=== PATIENT | male | born 1945 | race Caucasian/White ===

== ENCOUNTER 2018-03-14 08:54 | Emergency (ER) | payer MEDICARE, BC ==
[2018-03-14] MEDS ORDERED: Adenosine 6 MG/2 ML SDV ONE ×2 (09:05→10:04)
[2018-03-14] MEDS ORDERED: Diltiazem 50 MG/10 ML SDV ONE (09:05)
[2018-03-14] MEDS ORDERED: Sodium Chloride 0.9% 250 ML IV ONE ×2 (09:13→11:13)
[2018-03-14] MEDS ORDERED: Adenosine 6 MG/2 ML SDV IVPUSH ONE ×3 (09:25→10:15)
--- NOTE | 2018-03-14 10:04 | EDM.PDOC ---
ED HPI GENERAL MEDICAL PROBLEM - General Chief Complaint: Fever Stated Complaint: FEVER Time Seen by Provider: 03/14/18 09:00 - History of Present Illness INITIAL COMMENTS - FREE TEXT/NARRATIVE: 72-year-old male presents emergency room shortness of breath. Patient has been feeling generally ill for the last 5 or 6 days his appetite is been diminished he has not been eating or drinking much. He's had a mild cough with this. This morning when he woke up he had marked shortness of breath. He has a significant past history of a large myocardial infarction in the past she' s has 1 stent and is taking Plavix. He had a fever as high as 103 this morning, however he is afebrile upon presentation to the emergency room. He was brought back to the emergency room placed on a monitor and found to be in a tachydysrhythmia. - Related Data Allergies Allergy/AdvReac Type Severity Reaction Status Date / Time No Known Allergies Allergy Verified 03/14/18 09:10 Home Meds: Home Meds Atenolol [Tenormin] 25 mg PO BID 09/07/13 [History] Levothyroxine [Levothroid] 137 mcg PO DAILY 09/07/13 [History] Losartan [Cozaar] 25 mg PO DAILY 09/07/13 [History] Aspirin [Halfprin] 81 mg PO DAILY 09/23/13 [History] Clopidogrel [Plavix] 75 mg PO DAILY 09/23/13 [History] Nitroglycerin [Nitrostat] 0.4 mg SL ASDIRECTED PRN 09/23/13 [History] Ezetimibe 10 mg PO DAILY 03/14/18 [History] Multivitamin [Gummi Bear Multivitamin] 1 tab PO DAILY 03/14/18 [History] Rosuvastatin Calcium [Crestor] 20 mg PO BEDTIME 03/14/18 [History] Ubidecarenone [Co Q-10] 100 mg PO DAILY 03/14/18 [History] ED ROS GENERAL - Review of Systems Review Of Systems: See Below Constitutional: Reports: Fever, Chills, Weakness, Fatigue HEENT: Denies: No Symptoms Respiratory: Reports: Shortness of Breath, Cough. Denies: Sputum, Hemoptysis Cardiovascular: Denies: Chest Pain, Blood Pressure Problem, Palpitations Endocrine: Reports: No Symptoms GI/Abdominal: Reports: No Symptoms : Reports: No Symptoms Musculoskeletal: Reports: No Symptoms Skin: Reports: No Symptoms Neurological: Reports: No Symptoms Psychiatric: Reports: No Symptoms ED EXAM, GENERAL - Physical Exam Exam: See Below Exam Limited By: No Limitations General Appearance: Alert, No Apparent Distress, Other (Systolic blood pressures around 100 pulse 150-160 with some variability his oxygen suggest a little low he'll be started on supplemental oxygen) Head: Atraumatic, Normocephalic Neck: Normal Inspection, Supple, Non-Tender, Full Range of Motion. No: Lymphadenopathy (L), Lymphadenopathy (R) Respiratory/Chest: Lungs Clear, No Accessory Muscle Use, Decreased Breath Sounds (Mostly in the basis) Cardiovascular: No Edema, No Murmur, Tachycardia GI/Abdominal: Normal Bowel Sounds, Soft, Non-Tender Extremities: Normal Inspection, No Pedal Edema Neurological: Alert, Oriented, Normal Cognition Psychiatric: Normal Affect Course - Vital Signs Text/Narrative:: Initial EKG showed a SVT 152. A little unusual could also be a sinus tach related to his fever however he is afebrile at the time of presentation to the emergency room he looks a little dry on exam attempted to 150 mL and S bolus and this did nothing for his pulse. He was given 6 mg of adenosine and he converted to a sinus rhythm rate about 82 he stayed there for about 30 minutes and then developed a a tachydysrhythmia again. Attempted 6 mg of adenosine the did nothing. About ready to give him 12 and he converted to sinus on his own. I attempted to give him 5 mg IV Lopressor at that point in an attempt to keep his pulse down. Also at that time his labs were available for review which are concerning for an elevated white count with a marked bandemia chest x-ray shows a left lower lobe infiltrate. At this point is thought best to go ahead and attempt to treat his pneumonia and give him gentle fluid boluses with the fluid is tachycardia dysrhythmias did slow into the 120s but often times he would bounce back into a normal sinus. Case was discussed with our hospitalist who did not feel comfortable admitting here and it was recommended the patient be sent to [place] I was able to discuss situation with Dr. Russo to accept the hospitalist at [facility] in [place] who is kind enough to accept the patient in transfer however wanted him to go through the emergency room because of his concerning blood pressure. At that time it was not recommended to attempt any further management for the blood pressure other than continuing fluids. I did briefly discuss situation with Dr. Bedoya in the emergency room who had already talked to Dr. Russo. Last Recorded V/S: Last Vital Signs Temp 37.1 C 03/14/18 11:48 Pulse 72 03/14/18 11:48 Resp 24 H 03/14/18 11:48 BP 99/56 L 03/14/18 11:48 Pulse Ox 93 L 03/14/18 11:48 - Orders/Labs/Meds Orders: Active Orders 24 hr Category Date Time Status EKG Documentation Completion [RC] STAT Care 03/14/18 09:14 Active CULTURE BLOOD [BC] Stat Lab 03/14/18 09:54 Received CULTURE BLOOD [BC] Stat Lab 03/14/18 10:48 Received Labs: Laboratory Tests 03/14/18 03/14/18 03/14/18 Range/Units 09:10 09:10 09:10 WBC 18.03 H (4.23-9.07) K/mm3 RBC 4.75 (4.63-6.08) M/mm3 Hgb 15.1 (13.7-17.5) gm/L Hct 43.6 (40.1-51.0) % MCV 91.8 (79.0-92.2) fl MCH 31.8 (25.7-32.2) pg MCHC 34.6 (32.2-35.5) g/dl RDW Std Deviation 47.9 H (35.1-43.9) fL Plt Count 205 (163-337) K/mm3 MPV 10.4 (9.4-12.3) fl Neutrophils % (Manual) 46 (40-60) % Band Neutrophils % 28 H (0-10) % Lymphocytes % (Manual) 14 L (20-40) % Atypical Lymphs % 0 % Monocytes % (Manual) 11 H (2-10) % Eosinophils % (Manual) 0 L (0.8-7.0) % Basophils % (Manual) 0 L (0.2-1.2) Metamyelocytes % 1 Toxic Granulation 2+ moderate Platelet Estimate Adequate RBC Morph Comment Normal PT 12.0 (9.5-12.1) SECONDS INR 1.10 APTT 30 (24-31) SECONDS Sodium 134 L (136-145) mEq/L Potassium 3.8 (3.5-5.1) mEq/L Chloride 96 L (98-107) mEq/L Carbon Dioxide 22 (21-32) mEq/L Anion Gap 19.8 H (5-15) BUN 13 (7-18) mg/dL Creatinine 1.2 (0.7-1.3) mg/dL Est Cr Clr Drug Dosing 64.73 mL/min Estimated GFR (MDRD) 60 (>60) mL/min BUN/Creatinine Ratio 10.8 L (14-18) Glucose 139 H (80-115) mg/dL Lactic Acid (0.4-2.0) mmol/L Calcium 9.2 (8.5-10.1) mg/dL Magnesium 1.7 L (1.8-2.4) mg/dl Total Bilirubin 1.3 H (0.2-1.0) mg/dL AST 41 H (15-37) U/L ALT 48 (16-63) U/L Alkaline Phosphatase 67 (46-116) U/L Troponin I < 0.017 (0.00-0.056) ng/mL NT-Pro-B Natriuret Pep (0-125) pg/mL Total Protein 7.6 (6.4-8.2) g/dl Albumin 3.0 L (3.4-5.0) g/dl Globulin 4.6 gm/dL Albumin/Globulin Ratio 0.7 L (1-2) TSH 3rd Generation 2.183 (0.358-3.74) uIU/mL Mycoplasma pneumon IgM (NEGATIVE) 03/14/18 03/14/18 03/14/18 Range/Units 09:10 09:10 09:54 WBC (4.23-9.07) K/mm3 RBC (4.63-6.08) M/mm3 Hgb (13.7-17.5) gm/L Hct (40.1-51.0) % MCV (79.0-92.2) fl MCH (25.7-32.2) pg MCHC (32.2-35.5) g/dl RDW Std Deviation (35.1-43.9) fL Plt Count (163-337) K/mm3 MPV (9.4-12.3) fl Neutrophils % (Manual) (40-60) % Band Neutrophils % (0-10) % Lymphocytes % (Manual) (20-40) % Atypical Lymphs % % Monocytes % (Manual) (2-10) % Eosinophils % (Manual) (0.8-7.0) % Basophils % (Manual) (0.2-1.2) Metamyelocytes % Toxic Granulation Platelet Estimate RBC Morph Comment PT (9.5-12.1) SECONDS INR APTT (24-31) SECONDS Sodium (136-145) mEq/L Potassium (3.5-5.1) mEq/L Chloride (98-107) mEq/L Carbon Dioxide (21-32) mEq/L Anion Gap (5-15) BUN (7-18) mg/dL Creatinine (0.7-1.3) mg/dL Est Cr Clr Drug Dosing mL/min Estimated GFR (MDRD) (>60) mL/min BUN/Creatinine Ratio (14-18) Glucose (80-115) mg/dL Lactic Acid 1.5 (0.4-2.0) mmol/L Calcium (8.5-10.1) mg/dL Magnesium (1.8-2.4) mg/dl Total Bilirubin (0.2-1.0) mg/dL AST (15-37) U/L ALT (16-63) U/L Alkaline Phosphatase (46-116) U/L Troponin I (0.00-0.056) ng/mL NT-Pro-B Natriuret Pep 1278 H (0-125) pg/mL Total Protein (6.4-8.2) g/dl Albumin (3.4-5.0) g/dl Globulin gm/dL Albumin/Globulin Ratio (1-2) TSH 3rd Generation (0.358-3.74) uIU/mL Mycoplasma pneumon IgM Negative (NEGATIVE) Meds: Medications Discontinued Medications Generic Name Dose Route Start Last Admin Trade Name Blake PRN Reason Stop Dose Admin Adenosine Confirm 03/14/18 09:05 03/14/18 10:35 Adenocard Administered 03/14/18 09:06 Not Given Dose 6 mg .ROUTE .STK-MED ONE Adenosine Confirm 03/14/18 10:04 03/14/18 10:35 Adenocard Administered 03/14/18 10:05 Not Given Dose 6 mg .ROUTE .STK-MED ONE Adenosine Confirm 03/14/18 10:11 03/14/18 10:36 Adenocard Administered 03/14/18 10:12 Not Given Dose 12 mg .ROUTE .STK-MED ONE Adenosine 6 mg 03/14/18 09:25 03/14/18 09:28 Adenocard IVPUSH 03/14/18 09:26 6 mg NOW ONE Administration Adenosine 6 mg 03/14/18 10:05 03/14/18 10:07 Adenocard IVPUSH 03/14/18 10:06 6 mg NOW ONE Administration Adenosine 12 mg 03/14/18 10:15 03/14/18 10:42 Adenocard IVPUSH 03/14/18 10:16 Not Given NOW ONE Adenosine 12 mg 03/14/18 10:45 03/14/18 10:16 Adenocard IVPUSH 03/14/18 10:46 12 mg NOW ONE Administration Ceftriaxone Sodium Confirm 03/14/18 10:50 03/14/18 10:52 Rocephin Administered 03/14/18 10:51 Not Given Dose 1 gm IV .STK-MED ONE Diltiazem HCl Confirm 03/14/18 09:05 03/14/18 11:44 Cardizem Administered 03/14/18 09:06 Not Given Dose 50 mg .ROUTE .STK-MED ONE Sodium Chloride 250 mls @ 999 mls/hr 03/14/18 09:13 03/14/18 09:15 Normal Saline IV 03/14/18 09:28 999 mls/hr .BOLUS ONE Administration Ceftriaxone Sodium 1 gm/ 100 mls @ 200 mls/hr 03/14/18 10:35 03/14/18 10:57 Sodium Chloride IV 03/14/18 11:04 Not Given ONETIME ONE Ceftriaxone Sodium 1 gm/ 100 mls @ 200 mls/hr 03/14/18 10:52 03/14/18 10:55 Sodium Chloride IV 03/14/18 11:21 200 mls/hr ONETIME ONE Administration Sodium Chloride Confirm 03/14/18 10:50 03/14/18 10:57 Normal Saline Administered 03/14/18 10:51 Not Given Dose 100 mls @ as directed .ROUTE .STK-MED ONE Sodium Chloride 250 mls @ 999 mls/hr 03/14/18 11:13 03/14/18 11:15 Normal Saline IV 03/14/18 11:28 999 mls/hr ONETIME ONE Administration Metoprolol Tartrate Confirm 03/14/18 10:21 03/14/18 10:36 Lopressor Administered 03/14/18 10:22 Not Given Dose 15 mg .ROUTE .STK-MED ONE Metoprolol Tartrate 5 mg 03/14/18 10:25 03/14/18 10:27 Lopressor IVPUSH 03/14/18 10:26 5 mg ONETIME ONE Administration Departure - Departure Time of Disposition: 12:17 Disposition: DC/Tfer to [facility] 02 Reason for Transfer *Q: Other Clinical Impression: Pneumonia, Tachyarrhythmia Referrals: Ab Lomax MD [Primary Care Provider] - Forms: ED Department Discharge - My Orders Last 24 Hours: My Active Orders 03/14/18 09:14 EKG Documentation Completion [RC] STAT 03/14/18 09:54 CULTURE BLOOD [BC] Stat 03/14/18 10:48 CULTURE BLOOD [BC] Stat - Assessment/Plan Last 24 Hours: My Active Orders 03/14/18 09:14 EKG Documentation Completion [RC] STAT 03/14/18 09:54 CULTURE BLOOD [BC] Stat 03/14/18 10:48 CULTURE BLOOD [BC] Stat
[2018-03-14] MEDS ORDERED: Adenosine 12 MG/4 ML SDV ONE (10:11)
--- NOTE | 2018-03-14 10:19 | CR ---
Chest: Portable view of the chest was obtained. Comparison: Prior chest x-ray of 09/07/13. Heart size and mediastinum are within normal limits for portable technique. Incidental azygos lobe is seen. Slight increased perihilar markings are noted within the left upper and left lower lung. Right lung is clear. Impression: 1. Slight increased perihilar markings within the left chest. Findings may represent mild bronchitis if patient has infectious symptoms. 2. Other incidental findings. Diagnostic code #3
[2018-03-14] MEDS ORDERED: Metoprolol Tartrate 5 MG/5 ML SDV ONE (10:21)
[2018-03-14] MEDS ORDERED: Metoprolol Tartrate 5 MG/5 ML SDV IVPUSH ONE (10:25)
[2018-03-14] MEDS ORDERED: cefTRIAXone 1 GM in Sodium Chloride 0.9% 100 ML IV ONE ×2 (10:35→10:52)
[2018-03-14] MEDS ORDERED: Adenosine 12 MG/4 ML SDV IVPUSH ONE (10:45)
[2018-03-14] MEDS ORDERED: Sodium Chloride 0.9% 100 ML ONE (10:50)
[2018-03-14] MEDS ORDERED: cefTRIAXone 1 GM AdvVial IV ONE (10:50)
[2018-03-14 12:13] VITALS: BP 87/66
[2018-03-14] MEDS ORDERED: Doxycycline 100 MG Cap PO ONE (12:19)
== END 2018-03-14 12:25 ==
LOC: JD.ED 08:54
DX: J18.9 Pneumonia, unspecified organism (principal); R00.0 Tachycardia, unspecified; I25.2 Old myocardial infarction; Z79.82 Long term (current) use of aspirin; Z79.899 Other long term (current) drug therapy; Z95.5 Presence of coronary angioplasty implant and graft
CPT/HCPCS: 36415; 71045; 80053; 81001; 83605; 83735; 83880; 84443; 84484; 85007; 85027; 85610; 85730; 86738; 87040; 87804; 93005; 96361; 96365; 96375; 96376; 99291; A9270; J0153; J0696; J3490; J7030; J7040

== ENCOUNTER 2018-06-30 19:44 | Emergency (ER) | payer MEDICARE, BC ==
[2018-06-30 20:01] VITALS: BP 145/75
--- NOTE | 2018-06-30 22:02 | EDM.PDOC ---
ED HPI GENERAL MEDICAL PROBLEM - General Chief Complaint: Cardiovascular Problem Stated Complaint: BLOOD PRESSURE HIGH Time Seen by Provider: 06/30/18 20:14 Source of Information: Reports: Patient, Family (), RN Notes Reviewed History Limitations: Reports: No Limitations - History of Present Illness INITIAL COMMENTS - FREE TEXT/NARRATIVE: The patient states that he has chronic right knee pain, for which he sometimes takes ibuprofen, but he has been told by his Supervisor [employer] that he should take it sparingly. He was therefore recently prescribed tramadol. He states that he took his first dose of it, ever, around 10:00 to 11:00 this morning. He states that he then developed nausea and general malaise around noon, a sensation that persisted throughout the afternoon. He checked his blood pressure this evening, finding it to be elevated to 180/100, which is what prompted him to come to the ED, however, he acknowledges that he has not taken any of his evening medications tonight, including his blood pressure medicines. Further, he states that here in the ED, he no longer has nausea. The patient is concerned, because he suffered a SC in September 2013, and at that time he had nausea and felt tired, but did not have chest pain, dyspnea, or diaphoresis. The patient states that he suffered a syncopal episode and was found to be cyanotic. His started CPR, which was continued by EMS. He was brought to this ED, then transferred to [facility], where he received a single coronary stent (likely to the circumflex, but possibly to the RCA). The patient is concerned that the nausea that he felt earlier this afternoon could be cardiac related. The patient states that his last cardiac stress test was 20 years ago, and that he has not undergone a cardiac stress test since his SC. The patient notes that he is physically active, and is not limited by chest discomfort, dyspnea, nausea, or diaphoresis. The patient also notes that he has developed nausea and emesis when he has taken an opioid in the past. Here in the ED, the patient's initial BP was found to be 145/75. His oxygen saturation is 100% on room air. The patient's PCP is Dr. Ab Lomax. The patient's Supervisor [employer] H[employer] is Dr. Ramu Roberts. - Related Data Allergies Allergy/AdvReac Type Severity Reaction Status Date / Time No Known Allergies Allergy Verified 06/30/18 19:56 Home Meds: Home Meds Atenolol [Tenormin] 25 mg PO BID 09/07/13 [History] Levothyroxine [Levothroid] 137 mcg PO DAILY 09/07/13 [History] Losartan [Cozaar] 25 mg PO DAILY 09/07/13 [History] Aspirin [Halfprin] 81 mg PO DAILY 09/23/13 [History] Clopidogrel [Plavix] 75 mg PO DAILY 09/23/13 [History] Nitroglycerin [Nitrostat] 0.4 mg SL ASDIRECTED PRN 09/23/13 [History] Ezetimibe 10 mg PO DAILY 03/14/18 [History] Multivitamin [Gummi Bear Multivitamin] 1 tab PO DAILY 03/14/18 [History] Rosuvastatin Calcium [Crestor] 20 mg PO BEDTIME 03/14/18 [History] Ubidecarenone [Co Q-10] 100 mg PO DAILY 03/14/18 [History] Past Medical History Cardiovascular History: Reports: CAD, High Cholesterol, Hypertension, SC ( inferior wall, 09/08/2013) Respiratory History: Reports: Sleep Apnea (nightly CPAP) Endocrine/Metabolic History: Reports: Hypothyroidism, Obesity/BMI 30+ - Infectious Disease History Infectious Disease History: Reports: Chicken Pox, Measles, Mumps - Past Surgical History HEENT Surgical History: Reports: Cataract Surgery (left only), Eye Surgery (left , repair of laceration) Cardiovascular Surgical History: Reports: Coronary Artery Stent (x 1) Neurological Surgical History: Reports: Lumbar Spine (laminectomy around 1975) Musculoskeletal Surgical History: Reports: Carpal Tunnel (bilateal, 2013), Shoulder Surgery (arthroscopic, left 2002, right 2012) Social & Family History - Tobacco Use Smoking Status *Q: Former Smoker (dabbled as teenager) - Caffeine Use Caffeine Use: Reports: Coffee - Alcohol Use Alcohol Use History: Yes Alcohol Use Frequency: Socially - Recreational Drug Use Recreational Drug Use: No - Living Situation & Occupation Living situation: Reports: , with Spouse Occupation: Retired ED ROS GENERAL - Review of Systems Review Of Systems: ROS reveals no pertinent complaints other than HPI. ED EXAM, GENERAL - Physical Exam Exam: See Below Exam Limited By: No Limitations General Appearance: Alert, WD/WN, No Apparent Distress Eye Exam: Bilateral Eye: EOMI, Normal Inspection Ears: Normal External Exam, Hearing Grossly Normal Nose: Normal Inspection Throat/Mouth: Normal Inspection, Normal Lips, Normal Voice, No Airway Compromise Head: Atraumatic, Normocephalic Neck: Normal Inspection, Full Range of Motion Respiratory/Chest: No Respiratory Distress, Lungs Clear, Normal Breath Sounds, No Accessory Muscle Use Cardiovascular: Normal Peripheral Pulses, Regular Rate, Rhythm, No Gallop, No JVD, No Murmur, No Rub Peripheral Pulses: 4+: Radial (L), Radial (R) GI/Abdominal: Normal Bowel Sounds, Soft, Non-Tender, No Organomegaly, No Distention, No Abnormal Bruit, No Mass, Other (Obese) (Male) Exam: Deferred Rectal (Males) Exam: Deferred Back Exam: Normal Inspection, Full Range of Motion, NT Extremities: Normal Inspection, Normal Range of Motion, No Pedal Edema, Normal Capillary Refill Neurological: Alert, Oriented, Normal Cognition, No Motor/Sensory Deficits Psychiatric: Normal Affect Skin Exam: Warm, Dry, Intact, Normal Color, No Rash EKG INTERPRETATION EKG Date: 06/30/18 Time: 19:55 Rhythm: NSR Rate (Beats/Min): 64 [employer]: LAD-Left [employer] Deviation (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) P-Wave: Present (1 AVB) QRS: Normal (Late transition) ST-T: Normal QT: Normal Comparison: Change From Previous EKG (ECG 09/07/2013 had changes consistent with an inferior wall SC) Course - Vital Signs Last Recorded V/S: Last Vital Signs Temp 36.9 C 06/30/18 19:56 Pulse 70 06/30/18 19:56 Resp 18 06/30/18 19:56 BP 145/75 H 06/30/18 19:56 Pulse Ox 100 06/30/18 19:56 - Orders/Labs/Meds Labs: Laboratory Tests 06/30/18 06/30/18 06/30/18 Range/Units 20:00 20:00 20:00 WBC 12.32 H (4.23-9.07) K/mm3 RBC 4.83 (4.63-6.08) M/mm3 Hgb 15.2 (13.7-17.5) gm/L Hct 45.9 (40.1-51.0) % MCV 95.0 H (79.0-92.2) fl MCH 31.5 (25.7-32.2) pg MCHC 33.1 (32.2-35.5) g/dl RDW Std Deviation 47.8 H (35.1-43.9) fL Plt Count 229 (163-337) K/mm3 MPV 10.1 (9.4-12.3) fl Neut % (Auto) 54.6 (34.0-67.9) % Lymph % (Auto) 30.9 (21.8-53.1) % Stevens % (Auto) 11.1 (5.3-12.2) % Eos % (Auto) 2.8 (0.8-7.0) Baso % (Auto) 0.4 (0.1-1.2) % Neut # (Auto) 6.72 H (1.78-5.38) K/mm3 Lymph # (Auto) 3.81 H (1.32-3.57) K/mm3 Stevens # (Auto) 1.37 H (0.30-0.82) K/mm3 Eos # (Auto) 0.34 (0.04-0.54) K/mm3 Baso # (Auto) 0.05 (0.01-0.08) K/mm3 Sodium 140 (136-145) mEq/L Potassium 4.4 (3.5-5.1) mEq/L Chloride 103 (98-107) mEq/L Carbon Dioxide 27 (21-32) mEq/L Anion Gap 14.4 (5-15) BUN 20 H (7-18) mg/dL Creatinine 0.9 (0.7-1.3) mg/dL Est Cr Clr Drug Dosing TNP Estimated GFR (MDRD) > 60 (>60) mL/min BUN/Creatinine Ratio 22.2 H (14-18) Glucose 111 (80-115) mg/dL Calcium 9.6 (8.5-10.1) mg/dL Total Bilirubin 0.3 (0.2-1.0) mg/dL AST 24 (15-37) U/L ALT 47 (16-63) U/L Alkaline Phosphatase 58 (46-116) U/L Troponin I < 0.017 (0.00-0.056) ng/mL NT-Pro-B Natriuret Pep 212 H (0-125) pg/mL Total Protein 7.5 (6.4-8.2) g/dl Albumin 4.1 (3.4-5.0) g/dl Globulin 3.4 gm/dL Albumin/Globulin Ratio 1.2 (1-2) - Re-Assessments/Exams Free Text/Narrative Re-Assessment/Exam: 06/30/18 22:14 Test results discussed with the patient and his . The patient's troponin, drawn at 20:00, approximately 8 hours after his nausea began, is undetectably low. His ECG has no ischemic changes, while his ECG from 09/07/2018, when he suffered a inferior wall SC, did have changes consistent with an infarct. I suspect that the nausea that the patient experienced today is related to his taking tramadol, especially in light of his having significant nausea and vomiting with prior opioid use. Going forward, I am recommending that the patient follow-up with his Supervisor [employer] to discuss whether or not he might be a good candidate for an outpatient cardiac stress test. He can also inquire whether or not he should be on medication to specifically treat PVCs (he states that that is why he is on atenolol, not for BP), and he can also inquire about whether or not the benefits of Plavix still outweighs its risks. Departure - Departure Time of Disposition: 22:16 Disposition: Home, Self-Care 01 Condition: Good Clinical Impression: Nausea Instructions: Nausea, Adult Referrals: Ab Lomax MD [Primary Care Provider] - Ramu Roberts MD [Ordering Only Provider] - Forms: ED Department Discharge Additional Instructions: You were seen in the emergency room for nausea, symptoms similar to when you suffered a SC in 2013. Workup in the ER included blood work and an ECG, all of which were unremarkable. You have not suffered a heart attack. The cause of your nausea is most likely due to the tramadol that you took earlier. We recommend that you follow-up with your Supervisor [employer], Dr. Ramu Roberts to discuss : Whether you should have an outpatient cardiac stress test Whether you should be on medicine specifically to treat PVCs (if you are) Whether you should still be on Plavix If any other problems, please do not hesitate to return to the ER.
== END 2018-06-30 22:32 | disposition home or self-care (01) ==
LOC: SUPCPDRO 19:44 → JD.ED 19:44
DX: R11.0 Nausea (principal); E78.00 Pure hypercholesterolemia, unspecified; I25.10 Atherosclerotic heart disease of native coronary artery without angina pectoris; I10 Essential (primary) hypertension; I25.2 Old myocardial infarction; Z79.01 Long term (current) use of anticoagulants; Z79.899 Other long term (current) drug therapy; Z87.891 Personal history of nicotine dependence
CPT/HCPCS: 36415; 80053; 83880; 84484; 85025; 93005; 99283-25

== ENCOUNTER 2019-01-11 08:20 | Observation (INO) | payer MEDICARE, BC ==
[~2019-01-11 08:20] MED LIST: Acetaminophen 325 MG Tab PO SCH; Bisacodyl 5 MG Tab PO PRN; Bupivacaine 0.25% 10 ML SDV ONE; Cyclobenzaprine 10 MG Tab PO PRN; Lactated Ringers 1,000 ML IV SCH; Lidocaine 1%/Sod Bicarbonate in NS 8.4% 1 ML Syringe IDERM PRN; Magnesium Hydroxide 400 MG/5 ML Susp 30 ML Cup PO PRN; Morphine 2 MG/ML Syringe IVPUSH PRN; Naloxone 0.4 MG/ML SDV IVPUSH PRN; Ondansetron 4 MG/2 ML SDV IVPUSH PRN; Pregabalin 25 MG Cap PO SCH; Sennosides 8.6 MG Tab PO PRN; Sodium Chloride 0.9% 10 ML Syringe FLUSH PRN; ceFAZolin 1 GM Vial ONE; oxyCODONE ER 10 MG TAB.ER PO SCH
[2019-01-11] MEDS ORDERED: Scopolamine 1.5 MG Transdermal Patch TRDERM PRN (08:43)
--- NOTE | 2019-01-11 08:43 | PCM.PREANE ---
Preanesthetic Assessment - Procedure Proposed Procedure: left total knee arthroplasty - Anesthesia/Transfusion/Family Hx Anesthesia History: Prior Anesthesia Reaction (nausea) Family History of Anesthesia Reaction: No Transfusion History: No Prior Transfusion(s) - Review of Systems General: No Symptoms Pulmonary: No Symptoms Cardiovascular: No Symptoms Gastrointestinal: No Symptoms Neurological: Numbness (bilateral carpal tunnel surgery) Other: Reports: Thyroid Problems - Physical Assessment NPO Status Date: 01/10/19 NPO Status Time: 00:00 Height: 1.85 m Weight: 113.716 kg ASA Class: 3 Mental Status: Alert & Oriented x3 Airway Class: Mallampati = 1 Dentition: Reports: Bridge (top), Missing Tooth/Teeth Thyro-Mental Finger Breadths: 2 Mouth Opening Finger Breadths: 3 ROM/Head Extension: Full Lungs: Clear to Auscultation, Normal Respiratory Effort Cardiovascular: Regular Rate, Regular Rhythm - Imaging/EKG Impressions: EKG sinus rhythm rate of 54 - Allergies Allergies/Adverse Reactions: Allergies Allergy/AdvReac Type Severity Reaction Status Date / Time No Known Allergies Allergy Verified 01/08/19 16:38 - Anesthesia Plan Pre-Op Medication Ordered: Beta Cathleen Beta Cathleen: Acebutolol Med Last Dose Date: 01/11/19 Med Last Dose Time: 07:00 - Acknowledgements Anesthesia Type Planned: Spinal Pt an Appropriate Candidate for the Planned Anesthesia: Yes Alternatives and Risks of Anesthesia Discussed w Pt/Guardian: Yes Pt/Guardian Understands and Agrees with Anesthesia Plan: Yes PreAnesthesia Questionnaire HEENT History: Reports: Cataract, Impaired Vision Other HEENT History: sutures to face, laceration to eyeball from fall. Cardiovascular History: Reports: CAD, High Cholesterol, Hypertension, [place] Other Cardiovascular History: frequent PVC's Respiratory History: Reports: Sleep Apnea Other Respiratory History: wears C-PAP. 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 Oncologic (Cancer) History: Reports: None Dermatologic History: Reports: None - Infectious Disease History Infectious Disease History: Reports: Chicken Pox, Measles, Mumps - Past Surgical History Head Surgeries/Procedures: Reports: None HEENT Surgical History: Reports: Cataract Surgery, Eye Surgery Cardiovascular Surgical History: Reports: None, Coronary Artery Stent Respiratory Surgical History: Reports: None GI Surgical History: Reports: Colonoscopy Female Surgical History: Reports: None Male Surgical History: Reports: None Endocrine Surgical History: Reports: None Neurological Surgical History: Reports: Laminectomy, Lumbar Spine Musculoskeletal Surgical History: Reports: Carpal Tunnel, Shoulder Surgery Other Musculoskeletal Surgeries/Procedures:: back surgery. Oncologic Surgical History: Reports: None Dermatological Surgical History: Reports: None - SUBSTANCE USE Smoking Status *Q: Former Smoker Tobacco Use Within Last Twelve Months: No Second Hand Smoke Exposure: No Days Per Week of Alcohol Use: 2 Number of Drinks Per Day: 2 Total Drinks Per Week: 4 Recreational Drug Use History: No - HOME MEDS Home Medications: Home Meds Atenolol [Tenormin] 50 mg PO QAM 09/07/13 [History] Levothyroxine [Levothroid] 137 mcg PO DAILY 09/07/13 [History] Losartan [Cozaar] 25 mg PO DAILY 09/07/13 [History] Aspirin [Halfprin] 81 mg PO DAILY 09/23/13 [History] Clopidogrel [Plavix] 75 mg PO DAILY 09/23/13 [History] Nitroglycerin [Nitrostat] 0.4 mg SL ASDIRECTED PRN 09/23/13 [History] Ezetimibe 10 mg PO DAILY 03/14/18 [History] Rosuvastatin Calcium [Crestor] 20 mg PO BEDTIME 03/14/18 [History] Ubidecarenone [Co Q-10] 100 mg PO DAILY 03/14/18 [History] Atenolol 25 mg PO QPM 01/08/19 [History] Flaxseed/Omega3,6,9/Fatty Acid [Flax Seed Oil 1,300 mg Softgel] 1 cap PO DAILY 01/08/19 [History] Johanny Root [Johanny] 250 mg PO DAILY 01/08/19 [History] Mometasone Furoate [Elocon] 1 dose TOP BID PRN 01/08/19 [History] Turmeric 400 mg PO DAILY 01/08/19 [History] - CURRENT (IN HOUSE) MEDS Current Meds: Current Medications Acetaminophen (Tylenol) 975 mg PO ONETIME [facility] Stop: 01/11/19 12:00 Aspirin (Ecotrin) 325 mg PO BID [facility] Bisacodyl (Dulcolax) 5 mg PO DAILY PRN PRN Reason: Constipation Morphine Sulfate 8 mg/Epinephrine HCl 0.3 mg/Cefuroxime Sodium 750 mg/Ketorolac Tromethamine 30 mg/Sodium Chloride 27.9 ml 0 mg .XX ONETIME ONE Stop: 01/11/19 10:01 Cyclobenzaprine HCl (Flexeril) 10 mg PO TID PRN PRN Reason: Spasms Docusate Sodium (Colace) 100 mg PO BID [facility] Famotidine (Pepcid) 20 mg PO Q12H [facility] Lactated Ringer's (Ringers, Lactated) 1,000 mls @ 125 mls/hr IV ASDIRECTED [facility] Cefazolin Sodium/Dextrose 2 gm (/ Premix) 50 mls @ 100 mls/hr IV Q8H [facility] Stop: 01/11/19 22:59 Ketorolac Tromethamine (Toradol) 15 mg IVPUSH Q6H PRN PRN Reason: Pain Lidocaine/Sodium Bicarbonate (Buffered Lidocaine 1% In Ns 8.4%) 0.25 ml IDERM ONETIME PRN PRN Reason: Prior to IV Start Magnesium Hydroxide (Milk Of Magnesia) 30 ml PO BID PRN PRN Reason: Constipation Morphine Sulfate (Morphine) 2 mg IVPUSH Q2H PRN PRN Reason: Breakthrough Pain Naloxone HCl (Narcan) 0.1 mg IVPUSH Q5M PRN PRN Reason: Oversedation Ondansetron HCl (Zofran) 4 mg IVPUSH Q6H PRN PRN Reason: Nausea/Vomiting Oxycodone HCl (Oxycontin) 10 mg PO ONETIME [facility] Stop: 01/11/19 12:00 Oxycodone/Acetaminophen (Percocet 325-5 Mg) 1 - 2 tab PO Q4H PRN PRN Reason: Pain Pregabalin (Lyrica) 50 mg PO ONETIME [facility] Stop: 01/11/19 12:00 Senna (Senna) 8.6 mg PO BID PRN PRN Reason: Constipation Sodium Chloride (Saline Flush) 10 ml FLUSH ASDIRECTED PRN PRN Reason: Keep Vein Open Discontinued Medications Bupivacaine HCl (Sensorcaine-Mpf 0.25%) Confirm Administered Dose 20 ml .ROUTE .[facility] ONE Stop: 01/11/19 07:53 Bupivacaine HCl (Sensorcaine-Mpf 0.25%) Confirm Administered Dose 10 ml .ROUTE .STK-MED ONE Stop: 01/11/19 07:58 Cefazolin Sodium (Ancef) Confirm Administered Dose 2 gm .ROUTE .STK-[facility] ONE Stop: 01/11/19 07:53 Iodine (Iodine 2% Mild Tincture) Confirm Administered Dose 30 ml .ROUTE .STK- MED ONE Stop: 01/11/19 07:53 Tranexamic Acid (Cyklokapron) Confirm Administered Dose 1,000 mg .ROUTE .STK- MED ONE Stop: 01/11/19 07:52 Vancomycin HCl (Vancomycin) Confirm Administered Dose 1 gm .ROUTE .ST-MED ONE Stop: 01/11/19 07:53
[2019-01-11] MEDS ORDERED: EPINEPHrine 1 MG/ML SDV ONE (08:54)
[2019-01-11] MEDS ORDERED: Ropivacaine 0.5% 5 MG/ML 30 ML SDV ONE (08:54)
--- NOTE | 2019-01-11 08:54 | PCM.CONS ---
<Jv Guevara - Last Filed: 01/12/19 10:55> H&P History of Present Illness - General Date of Service: 01/12/19 Admit Problem/Dx: Admission Diagnosis/Problem Admission Diagnosis/Problem Osteoarthritis of knee Source of Information: Patient, Provider, RN, RN Notes Reviewed History Limitations: Reports: No Limitations - History of Present Illness Initial Comments - Free Text/Narative: Arun Vasquez is a 73 yo male patient of Dr. Siddiqui who is post-operative day 1 of left TKA. Hospital medicine was consulted for post-operative medical care of the following listed medical conditions. At this time he is resting comfortably in bed. Pain is controlled. He denies any chest pain, shortness of breath, palpitations, nausea, or vomiting. He carries a history of: prolonged CA interval, CAD, PVCs, [place], HLD, HTN, hypothyroidism, sleep apnea with CPAP, chronic back pain, obesity, carrier of hemochromatosis. He is a former smoker. He is a full code. His primary care provider is Dr. Lomax. Left Knee Pain Score (Numeric/FACES): 0 - Related Data Allergies/Adverse Reactions: Allergies Allergy/AdvReac Type Severity Reaction Status Date / Time No Known Allergies Allergy Verified 01/11/19 12:20 Home Medications: Home Meds Atenolol [Tenormin] 50 mg PO QAM 09/07/13 [History] Levothyroxine [Levothroid] 137 mcg PO DAILY 09/07/13 [History] Losartan [Cozaar] 25 mg PO DAILY 09/07/13 [History] Clopidogrel [Plavix] 75 mg PO DAILY 09/23/13 [History] Nitroglycerin [Nitrostat] 0.4 mg SL ASDIRECTED PRN 09/23/13 [History] Ezetimibe 10 mg PO DAILY 03/14/18 [History] Rosuvastatin Calcium [Crestor] 20 mg PO BEDTIME 03/14/18 [History] Ubidecarenone [Co Q-10] 100 mg PO DAILY 03/14/18 [History] Atenolol 25 mg PO QPM 01/08/19 [History] Mometasone Furoate [Elocon] 1 dose TOP BID PRN 01/08/19 [History] Cholecalciferol (Vitamin D3) [Vitamin D3] 1 cap PO DAILY 01/11/19 [History] Acetaminophen/oxyCODONE [Percocet 325-5 MG] 1 - 2 tab PO Q4H PRN #60 tablet 07/26 [Rx] Aspirin [Ecotrin EC] 325 mg PO BID #60 tab.ec 01/12/19 [Rx] Bisacodyl [Dulcolax] 5 mg PO DAILY PRN tablet 01/12/19 [Rx] Cyclobenzaprine [Flexeril] 10 mg PO TID PRN #40 tablet 01/12/19 [Rx] Docusate Sodium [Colace] 100 mg PO BID cap 01/12/19 [Rx] Famotidine [Pepcid] 20 mg PO Q12H tablet 01/12/19 [Rx] Magnesium Hydroxide [Milk of Magnesia] 30 ml PO BID PRN cup 01/12/19 [Rx] Sennosides [Senna] 8.6 mg PO BID PRN tablet 01/12/19 [Rx] Past Medical History HEENT History: Reports: Cataract, Impaired Vision Other HEENT History: sutures to face, laceration to eyeball from fall. Cardiovascular History: Reports: CAD, High Cholesterol, Hypertension, [place] Other Cardiovascular History: frequent PVC's Respiratory History: Reports: Sleep Apnea Other Respiratory History: wears C-PAP. 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 Oncologic (Cancer) History: Reports: None Dermatologic History: Reports: None - Infectious Disease History Infectious Disease History: Reports: Chicken Pox, Measles, Mumps - Past Surgical History Head Surgeries/Procedures: Reports: None HEENT Surgical History: Reports: Cataract Surgery, Eye Surgery Cardiovascular Surgical History: Reports: None, Coronary Artery Stent Respiratory Surgical History: Reports: None GI Surgical History: Reports: Colonoscopy Female Surgical History: Reports: None Male Surgical History: Reports: None Endocrine Surgical History: Reports: None Neurological Surgical History: Reports: Laminectomy, Lumbar Spine Musculoskeletal Surgical History: Reports: Carpal Tunnel, Shoulder Surgery Other Musculoskeletal Surgeries/Procedures:: back surgery. Oncologic Surgical History: Reports: None Dermatological Surgical History: Reports: None Social & Family History - Tobacco Use Smoking Status *Q: Former Smoker Used Tobacco, but Quit: Yes Month/Year Tobacco Last Used: 1989 - Caffeine Use Caffeine Use: Reports: Coffee, Soda, Tea - Recreational Drug Use Recreational Drug Use: No Drug Use in Last 12 Months: No - Living Situation & Occupation Living situation: Reports: , with Spouse Occupation: Retired H&P Review of Systems - Review of Systems: Review Of Systems: See Below General: Reports: No Symptoms. Denies: Fever, Chills HEENT: Reports: No Symptoms. Denies: Headaches, Sore Throat Pulmonary: Reports: No Symptoms. Denies: Shortness of Breath, Wheezing, Pleuritic Chest Pain, Cough, Sputum Cardiovascular: Reports: No Symptoms. Denies: Chest Pain, Palpitations, Dyspnea on Exertion Gastrointestinal: Reports: No Symptoms. Denies: Abdominal Pain, Constipation, Diarrhea, Nausea, Vomiting Genitourinary: Reports: No Symptoms. Denies: Pain Musculoskeletal: Reports: Leg Pain (left), Muscle Stiffness Skin: Reports: No Symptoms. Denies: Cyanosis Psychiatric: Reports: No Symptoms. Denies: Confusion Neurological: Reports: No Symptoms Hematologic/Lymphatic: Reports: No Symptoms Immunologic: Reports: No Symptoms Exam - Exam Exam: See Below - Exam Quality Assessment: DVT Prophylaxis General: Alert, Oriented, Cooperative. No: Mild Distress HEENT: Conjunctiva Clear, EACs Clear, EOMI, Hearing Intact, Mucosa Moist & [place] , Nares Patent, Posterior Pharynx Clear, PERRLA Neck: Supple, Trachea Midline Lungs: Clear to Auscultation, Normal Respiratory Effort Cardiovascular: Regular Rate, Regular Rhythm GI/Abdominal Exam: Normal Bowel Sounds, Soft, Non-Tender, No Distention, No Abnormal Bruit (Male) Exam: Deferred Rectal (Males) Exam: Deferred Back Exam: Normal Inspection, Full Range of Motion Extremities: No Pedal Edema, Normal Capillary Refill, Leg Pain, Limited Range of Motion, Other (Bandage in place on left leg. Bandage is dry and intact. Cooling pack in place ) Peripheral Pulses: 2+: Radial (L), Radial (R), Dorsalis Pedis (L), Dorsalis Pedis (R) Skin: Warm, Dry, Intact Neurological: Cranial Nerves Intact (Grossly ) Neuro Extensive - Mental Status: Alert, Oriented x3, Normal Mood/Affect - Patient Data Result Diagrams: 01/12/19 04:27 01/12/19 04:27 Consult PN Assessment/Plan POD#: 1 Procedures: Procedures ASSAY OF CK (CPK) (09/07/13) ASSAY OF LACTIC ACID (03/14/18) ASSAY OF MAGNESIUM (03/14/18) ASSAY OF NATRIURETIC PEPTIDE (06/30/18) ASSAY OF TROPONIN QUANT (06/30/18) ASSAY THYROID STIM HORMONE (03/14/18) BL SMEAR W/DIFF WBC COUNT (03/14/18) BLOOD CULTURE FOR BACTERIA (03/14/18) CARDIAC REHAB/MONITOR (11/01/13) CHEST X-RAY 1 VIEW FRONTAL (09/07/13) COMPLETE CBC AUTOMATED (03/14/18) COMPLETE CBC W/AUTO DIFF WBC (06/30/18) COMPREHEN METABOLIC PANEL (06/30/18) CREATINE MB FRACTION (09/07/13) CRITICAL CARE FIRST HOUR (03/14/18) CT HEAD/BRAIN W/O DYE (09/07/13) CT NECK SPINE W/O DYE (09/07/13) ELECTROCARDIOGRAM TRACING (06/30/18) EMERGENCY DEPT VISIT (06/30/18) EMERGENCY DEPT VISIT (09/07/13) HYDRATE IV INFUSION ADD-ON (03/14/18) INFLUENZA ASSAY W/OPTIC (03/14/18) LIPID PANEL (11/09/15) MASSAGE THERAPY (11/01/13) MR-STAPH DNA AMP PROBE (01/01/19) MRI LUMBAR SPINE W/O & W/DYE (07/26/14) MYCOPLASMA ANTIBODY (03/14/18) POLYSOM 6/> YRS 4/> [place] (10/22/13) PROTHROMBIN TIME (03/14/18) PT EVALUATION (11/01/13) ROUTINE VENIPUNCTURE (06/30/18) THER/PROPH/DIAG IV INF INIT (03/14/18) THERAPEUTIC EXERCISES (11/01/13) THROMBOPLASTIN TIME PARTIAL (03/14/18) TISSUE EXAM BY PATHOLOGIST (08/09/14) TX/PRO/DX INJ NEW DRUG ADDON (03/14/18) TX/PRO/DX INJ SAME DRUG COMPUTER TECHNICAL SUPPORT SPECIALIST (03/14/18) ULTRASOUND THERAPY (11/01/13) URINALYSIS AUTO W/SCOPE (03/14/18) X-RAY EXAM CHEST 1 VIEW (03/14/18) X-RAY EXAM OF SKULL (07/26/14) (1) S/P total knee arthroplasty SNOMED Code(s): 1378149637022, 545167601, 9550318379994 Code(s): Z96.659 - PRESENCE OF UNSPECIFIED ARTIFICIAL KNEE JOINT Priority: High Qualifiers: Laterality: left Qualified Code(s): Z96.652 - Presence of left artificial knee joint (2) Osteoarthritis SNOMED Code(s): 887261212 Code(s): M19.90 - UNSPECIFIED OSTEOARTHRITIS, UNSPECIFIED SITE Priority: High Qualifiers: Osteoarthritis location: knee Osteoarthritis type: primary Laterality: left Qualified Code(s): M17.12 - Unilateral primary osteoarthritis, left knee (3) Prolonged P-R interval SNOMED Code(s): 949301561 Code(s): I44.0 - ATRIOVENTRICULAR BLOCK, FIRST DEGREE Priority: Medium (4) CAD (coronary artery disease) SNOMED Code(s): 31530474 Code(s): I25.10 - ATHSCL HEART DISEASE OF [place] CORONARY ARTERY W/O ANG PCTRS Priority: Medium Qualifiers: Coronary Disease-Associated Artery/Lesion type: unspecified vessel or lesion type [place] vs. transplanted heart: unspecified whether [place] or transplanted heart Associated angina: angina presence unspecified Qualified Code(s): I25.10 - Atherosclerotic heart disease of [place] coronary artery without angina pectoris (5) Frequent PVCs SNOMED Code(s): 59717713 Code(s): I49.3 - VENTRICULAR PREMATURE DEPOLARIZATION Priority: Medium (6) History of [place] (myocardial infarction) SNOMED Code(s): 909826002 Code(s): I25.2 - OLD MYOCARDIAL INFARCTION Priority: Low (7) HLD (hyperlipidemia) SNOMED Code(s): 18152640 Code(s): E78.5 - HYPERLIPIDEMIA, UNSPECIFIED Priority: Low Qualifiers: Hyperlipidemia type: unspecified Qualified Code(s): E78.5 - Hyperlipidemia , unspecified (8) HTN (hypertension) SNOMED Code(s): 21619208 Code(s): I10 - ESSENTIAL (PRIMARY) HYPERTENSION Priority: Medium Qualifiers: Hypertension type: unspecified Qualified Code(s): I10 - Essential (primary ) hypertension (9) Hypothyroidism SNOMED Code(s): 62730814 Code(s): E03.9 - HYPOTHYROIDISM, UNSPECIFIED Priority: Low Qualifiers: Hypothyroidism type: unspecified Qualified Code(s): E03.9 - Hypothyroidism , unspecified (10) Sleep apnea SNOMED Code(s): 40014411 Code(s): G47.30 - SLEEP APNEA, UNSPECIFIED Priority: Medium Qualifiers: Sleep apnea type: unspecified type Qualified Code(s): G47.30 - Sleep apnea , unspecified Problem List Initiated/Reviewed/Updated: Yes Plan: I/P: Acute: S/P left total knee arthroplasty - post-operative day 1 -DVT prophylaxis and pain management per primary care team -PT/OT -IS/RT -Monitor oxygen saturation -Titrate oxygen as needed -Home medications reviewed -Vital signs stable -Monitor labs -Pre-operative Hgb was 16.0; Now 12.8 -Pre-operative GFR was >90; Now >60 -Pre-operative WBC was 1.4; Now 11.94 Osteoarthritis of left knee -Pain management per primary care team Chronic: prolonged CA interval CAD PVCs [place] HLD HTN hypothyroidism sleep apnea with CPAP chronic back pain obesity carrier of hemochromatosis Plan: Telemetry CM for discharge planning GI prophylaxis Home medications as indicated Other orders as listed above Routine AM labs He is a full code. His PCP is Dr. Lomax From a hospitalist standpoint Arun is doing well. He has been up ambulating and working with therapies. Pain is controlled. He is off oxygen and has urinated. He has been eating well. His labs and vital signs remained stable. He is clear for discharge pending PT/OT and primary team approval. Thank you for allowing us to participate in the care of this patient!! Requesting Provider: Dr. Siddiqui Date Consult Requested: 01/11/19 Patient History Reviewed: Yes Admission H&P Reviewed: Yes <Rachele Bear - Last Filed: 01/12/19 21:20> H&P History of Present Illness - General Admit Problem/Dx: Admission Diagnosis/Problem Admission Diagnosis/Problem Osteoarthritis of knee Exam - Vital Signs Vital Signs: Last Vital Signs Temp 36.8 C 01/12/19 12:23 Pulse 58 L 01/12/19 12:23 Resp 18 01/12/19 12:23 BP 131/78 01/12/19 12:23 Pulse Ox 99 01/12/19 12:23 - Patient Data Lab Results Last 24 hrs: Laboratory Results - last 24 hr 01/12/19 01/12/19 Range/Units 04:27 04:27 WBC 11.94 H (4.23-9.07) K/mm3 RBC 4.18 L (4.63-6.08) M/mm3 Hgb 12.8 L D (13.7-17.5) gm/dl Hct 40.0 L (40.1-51.0) % MCV 95.7 H (79.0-92.2) fl MCH 30.6 (25.7-32.2) pg MCHC 32.0 L (32.2-35.5) g/dl RDW Std Deviation 46.4 H (35.1-43.9) fL Plt Count 196 (163-337) K/mm3 MPV 10.7 (9.4-12.3) fl Sodium 141 (136-145) mEq/L Potassium 4.1 (3.5-5.1) mEq/L Chloride 105 (98-107) mEq/L Carbon Dioxide 26 (21-32) mEq/L Anion Gap 14.1 (5-15) BUN 12 (7-18) mg/dL Creatinine 0.9 (0.7-1.3) mg/dL Est Cr Clr Drug Dosing 85.08 mL/min Estimated GFR (MDRD) > 60 (>60) mL/min BUN/Creatinine Ratio 13.3 L (14-18) Glucose 97 (83-115) mg/dL Calcium 8.7 (8.5-10.1) mg/dL Total Bilirubin 0.5 (0.2-1.0) mg/dL AST 21 (15-37) U/L ALT 31 (16-63) U/L Alkaline Phosphatase 58 (46-116) U/L Total Protein 6.0 L (6.4-8.2) g/dl Albumin 3.2 L (3.4-5.0) g/dl Globulin 2.8 gm/dL Albumin/Globulin Ratio 1.1 (1-2) Result Diagrams: 01/12/19 04:27 01/12/19 04:27 Consult PN Assessment/Plan Procedures: Procedures ASSAY OF CK (CPK) (09/07/13) ASSAY OF LACTIC ACID (03/14/18) ASSAY OF MAGNESIUM (03/14/18) ASSAY OF NATRIURETIC PEPTIDE (06/30/18) ASSAY OF TROPONIN QUANT (06/30/18) ASSAY THYROID STIM HORMONE (03/14/18) BL SMEAR W/DIFF WBC COUNT (03/14/18) BLOOD CULTURE FOR BACTERIA (03/14/18) CARDIAC REHAB/MONITOR (11/01/13) CHEST X-RAY 1 VIEW FRONTAL (09/07/13) COMPLETE CBC AUTOMATED (03/14/18) COMPLETE CBC W/AUTO DIFF WBC (06/30/18) COMPREHEN METABOLIC PANEL (06/30/18) CREATINE MB FRACTION (09/07/13) CRITICAL CARE FIRST HOUR (03/14/18) CT HEAD/BRAIN W/O DYE (09/07/13) CT NECK SPINE W/O DYE (09/07/13) ELECTROCARDIOGRAM TRACING (06/30/18) EMERGENCY DEPT VISIT (06/30/18) EMERGENCY DEPT VISIT (09/07/13) HYDRATE IV INFUSION ADD-ON (03/14/18) INFLUENZA ASSAY W/OPTIC (03/14/18) LIPID PANEL (11/09/15) MASSAGE THERAPY (11/01/13) MR-STAPH DNA AMP PROBE (01/01/19) MRI LUMBAR SPINE W/O & W/DYE (07/26/14) MYCOPLASMA ANTIBODY (03/14/18) POLYSOM 6/> YRS 4/> [place] (10/22/13) PROTHROMBIN TIME (03/14/18) PT EVALUATION (11/01/13) ROUTINE VENIPUNCTURE (06/30/18) THER/PROPH/DIAG IV INF INIT (03/14/18) THERAPEUTIC EXERCISES (11/01/13) THROMBOPLASTIN TIME PARTIAL (03/14/18) TISSUE EXAM BY PATHOLOGIST (08/09/14) TX/PRO/DX INJ NEW DRUG ADDON (03/14/18) TX/PRO/DX INJ SAME DRUG COMPUTER TECHNICAL SUPPORT SPECIALIST (03/14/18) ULTRASOUND THERAPY (11/01/13) URINALYSIS AUTO W/SCOPE (03/14/18) X-RAY EXAM CHEST 1 VIEW (03/14/18) X-RAY EXAM OF SKULL (07/26/14) Plan: Case was discussed with Jv Guevara and agree with his assessment and plan set forth for this patient.
[2019-01-11] MEDS ORDERED: Scopolamine 1.5 MG Transdermal Patch TOP ONE (08:57)
[2019-01-11] MEDS ORDERED: Propofol 200 MG/20 ML SDV ONE ×3 (08:58→10:39)
[2019-01-11] MEDS ORDERED: Midazolam 1 MG/ML 2 ML SDV ONE (08:58)
[2019-01-11] MEDS ORDERED: fentaNYL 100 MCG/2 ML SDV ONE (08:58)
[2019-01-11] MEDS ORDERED: Lidocaine 1% 0 ML ONE (08:58)
[2019-01-11] MEDS ORDERED: fentaNYL 100 MCG/2 ML SDV IVPUSH PRN (09:27)
[2019-01-11] MEDS ORDERED: HYDROmorphone 0.5 MG/0.5 ML Syringe IVPUSH PRN (09:27)
[2019-01-11] MEDS ORDERED: Ondansetron 4 MG/2 ML SDV IVPUSH PRN (09:27)
[2019-01-11] MEDS ORDERED: ePHEDrine/Normal Saline 25 MG/5 ML Syringe ONE ×2 (09:41→10:57)
[2019-01-11] MEDS ORDERED: Lactated Ringers 1,000 ML ONE ×2 (09:56→10:49)
[2019-01-11] MEDS ORDERED: Ondansetron 4 MG/2 ML SDV ONE (09:56)
[2019-01-11] MEDS: Iodine/Sodium Iodide 2% Tincture 30 ML Bottle ONE ×2 (10:19→10:23)
[2019-01-11] MEDS: ceFAZolin 1 GM Vial ONE ×2 (10:20→10:25)
[2019-01-11] MEDS: Morphine 8 MG, EPINEPHrine 0.3 MG, Cefuroxime 750 MG, Ketorolac 30 MG, Sodium Chloride ... ONE ×15 (10:22→14:51)
[2019-01-11] MEDS: Bupivacaine 0.25% 10 ML SDV ONE ×2 (10:23→10:30)
[2019-01-11] MEDS: Vancomycin 1 GM SDV ONE ×2 (10:27→10:33)
--- NOTE | 2019-01-11 11:13 | PCM.POSTAN ---
POST ANESTHESIA ASSESSMENT - MENTAL STATUS Mental Status: Alert, Oriented - VITAL SIGNS Vital Signs: Last Vital Signs Temp 97.1 F 01/11/19 08:25 Pulse 66 01/11/19 08:25 Resp 16 01/11/19 08:25 BP 150/82 H 01/11/19 08:25 Pulse Ox 96 01/11/19 08:25 1103 93% 11 63 97.8 82/37 then 123/59 - RESPIRATORY Respiratory Status: Respiratory Rate WNL, Airway Patent, O2 Saturation Stable, Supplemental Oxygen - CARDIOVASCULAR CV Status: Pulse Rate WNL, Blood Pressure Stable - GASTROINTESTINAL GI Status: No Symptoms - PAIN Pain Score: 0 - POST OP HYDRATION Hydration Status: Adequate & Stable
--- NOTE | 2019-01-11 11:44 | PCM.SN ---
- Free Text/Narrative Note: Left selective femoral nerve block at the adductor canal for post-procedure pain control under US guidance requested by Dr. Siddiqui. Date:01-11-19 Time Out: 1126 Start: 1127 End: 1134 Chart reviewed. Consent signed. Questions answered. Appropriate monitors applied. Time out performed. Left mid-shaft femur identified with ultrasound, scanning medially of femur, the femoral artery in the adductor canal visualized , and the femoral nerve located laterally to the artery. The skin was prepped lateral to the ultrasound probe with chlorahexadine times two. The 21ga 4 insulated block needle was inserted under direct ultrasound guidance into the adductor canal. 25mL of 0.5% ropivacaine with 1:200,000 epinephrine was injected circumferentially around the nerve with intermittent negative aspiration noted. Patient tolerated the procedure well. Sterile technique noted along with sterile gloves, mask, and sterile probe cover. See picture on progress note and vital signs on nurses notes. Block completed in PACU. Nav Suazo CRNA
--- NOTE | 2019-01-11 11:50 | CR ---
Left knee: AP and lateral views of the left knee were obtained. Comparison: No prior left knee exam. Knee prosthesis is seen. Components are aligned. Soft tissue air is noted from the surgical procedure. No acute bony abnormality is seen. Impression: 1. Satisfactory postop radiographic appearance of recently placed left knee prosthesis. Diagnostic code #2
[2019-01-11] MEDS ORDERED: Ketorolac 15 MG/ML SDV IVPUSH PRN (12:00)
[2019-01-11] MEDS ORDERED: Nitroglycerin 0.4 MG Tab.SL SL PRN (15:08)
[2019-01-11] MEDS ORDERED: MOMETASONE FUROATE TOP PRN (15:08)
[2019-01-11] MEDS: ceFAZolin 2 GM in Premix Bag 1 BAG IV SCH (16:18)
[2019-01-11] MEDS ORDERED: Atenolol 25 MG Tab PO SCH (18:00)
[2019-01-11] MEDS: Acetaminophen/oxyCODONE 325-5 MG Tab PO PRN (19:25)
[2019-01-11] MEDS: Docusate Sodium 100 MG Cap PO SCH (20:05)
[2019-01-11] MEDS: Famotidine 20 MG Tab PO SCH (20:05)
[2019-01-11] MEDS ORDERED: Rosuvastatin 10 MG Tab PO SCH (21:00)
[2019-01-12] MEDS: ceFAZolin 2 GM in Premix Bag 1 BAG IV SCH ×2 (00:01→10:06)
[2019-01-12] MEDS: Acetaminophen/oxyCODONE 325-5 MG Tab PO PRN ×4 (00:10→14:36)
--- NOTE | 2019-01-12 07:27 | PCM.SURGPN ---
- General Info Date of Service: 01/12/19 POD#: 1 Functional Status: Reports: Pain Controlled, Tolerating Diet, Ambulating, Urinating, Incentive Spirometry, Other (The pt states he is doing well. Nursing staff report pt is doing well.) - Patient Data Vitals - Most Recent: Last Vital Signs Temp 97.9 F 01/12/19 03:41 Pulse 61 01/12/19 03:41 Resp 17 01/12/19 03:41 BP 118/96 H 01/12/19 03:41 Pulse Ox 90 L 01/12/19 03:41 Weight - Most Recent: 258 lb 8 oz I&O - Last 24 Hours: Intake & Output 01/11/19 01/12/19 01/12/19 22:59 06:59 14:59 Intake Total 930 900 Output Total 0 1300 Balance 930 -400 Lab Results Last 24 Hrs: Laboratory Results - last 24 hr 01/12/19 01/12/19 Range/Units 04:27 04:27 WBC 11.94 H (4.23-9.07) K/mm3 RBC 4.18 L (4.63-6.08) M/mm3 Hgb 12.8 L D (13.7-17.5) gm/dl Hct 40.0 L (40.1-51.0) % MCV 95.7 H (79.0-92.2) fl MCH 30.6 (25.7-32.2) pg MCHC 32.0 L (32.2-35.5) g/dl RDW Std Deviation 46.4 H (35.1-43.9) fL Plt Count 196 (163-337) K/mm3 MPV 10.7 (9.4-12.3) fl Sodium 141 (136-145) mEq/L Potassium 4.1 (3.5-5.1) mEq/L Chloride 105 (98-107) mEq/L Carbon Dioxide 26 (21-32) mEq/L Anion Gap 14.1 (5-15) BUN 12 (7-18) mg/dL Creatinine 0.9 (0.7-1.3) mg/dL Est Cr Clr Drug Dosing 85.08 mL/min Estimated GFR (MDRD) > 60 (>60) mL/min BUN/Creatinine Ratio 13.3 L (14-18) Glucose 97 (83-115) mg/dL Calcium 8.7 (8.5-10.1) mg/dL Total Bilirubin 0.5 (0.2-1.0) mg/dL AST 21 (15-37) U/L ALT 31 (16-63) U/L Alkaline Phosphatase 58 (46-116) U/L Total Protein 6.0 L (6.4-8.2) g/dl Albumin 3.2 L (3.4-5.0) g/dl Globulin 2.8 gm/dL Albumin/Globulin Ratio 1.1 (1-2) Med Orders - Current: Current Medications Aspirin (Ecotrin) 325 mg PO BID COUNT INCLUDES THE [facility] Atenolol (Tenormin) 25 mg PO QPM COUNT INCLUDES THE [facility] Last Admin: 01/11/19 18:14 Dose: 25 mg Atenolol (Tenormin) 50 mg PO QAM COUNT INCLUDES THE [facility] Bisacodyl (Dulcolax) 5 mg PO DAILY PRN PRN Reason: Constipation Cholecalciferol (Vitamin D3) 5,000 unit PO DAILY COUNT INCLUDES THE [facility] Clopidogrel Bisulfate (Plavix) 75 mg PO DAILY COUNT INCLUDES THE [facility] Cyclobenzaprine HCl (Flexeril) 10 mg PO TID PRN PRN Reason: Spasms Docusate Sodium (Colace) 100 mg PO BID COUNT INCLUDES THE [facility] Last Admin: 01/11/19 20:05 Dose: 100 mg Ezetimibe (Zetia) 10 mg PO DAILY COUNT INCLUDES THE [facility] Famotidine (Pepcid) 20 mg PO Q12H COUNT INCLUDES THE [facility] Last Admin: 01/11/19 20:05 Dose: 20 mg Cefazolin Sodium/Dextrose 2 gm (/ Premix) 50 mls @ 100 mls/hr IV Q8H COUNT INCLUDES THE [facility] Stop: 01/12/19 09:29 Last Admin: 01/12/19 00:01 Dose: 100 mls/hr Ketorolac Tromethamine (Toradol) 15 mg IVPUSH Q6H PRN PRN Reason: Pain Levothyroxine Sodium (Levothroid) 137 mcg PO ACBREAKFAST COUNT INCLUDES THE [facility] Last Admin: 01/12/19 06:38 Dose: 137 mcg Losartan Potassium (Cozaar) 25 mg PO DAILY COUNT INCLUDES THE [facility] Magnesium Hydroxide (Milk Of Magnesia) 30 ml PO BID PRN PRN Reason: Constipation Morphine Sulfate (Morphine) 2 mg IVPUSH Q2H PRN PRN Reason: Breakthrough Pain Naloxone HCl (Narcan) 0.1 mg IVPUSH Q5M PRN PRN Reason: Oversedation Nitroglycerin (Nitrostat) 0.4 mg SL ASDIRECTED PRN PRN Reason: Chest Pain Ondansetron HCl (Zofran) 4 mg IVPUSH Q6H PRN PRN Reason: Nausea/Vomiting Oxycodone/Acetaminophen (Percocet 325-5 Mg) 1 - 2 tab PO Q4H PRN PRN Reason: Pain Last Admin: 01/12/19 03:52 Dose: 2 tab Rosuvastatin Calcium (Crestor) 20 mg PO BEDTIME [facility] Last Admin: 01/11/19 20:05 Dose: 20 mg Senna (Senna) 8.6 mg PO BID PRN PRN Reason: Constipation Sodium Chloride (Saline Flush) 10 ml FLUSH ASDIRECTED PRN PRN Reason: Keep Vein Open Discontinued Medications Acetaminophen (Tylenol) 975 mg PO ONETIME [facility] Stop: 01/11/19 12:00 Last Admin: 01/11/19 08:40 Dose: 975 mg Bupivacaine HCl (Sensorcaine-Mpf 0.25%) Confirm Administered Dose 20 ml .ROUTE .STK-MED ONE Stop: 01/11/19 07:53 Last Admin: 01/11/19 10:30 Dose: 30 ml Bupivacaine HCl (Sensorcaine-Mpf 0.25%) Confirm Administered Dose 10 ml .ROUTE .STK-MED ONE Stop: 01/11/19 07:58 Cefazolin Sodium (Ancef) Confirm Administered Dose 2 gm .ROUTE .STK-MED ONE Stop: 01/11/19 07:53 Cefazolin Sodium (Ancef) Confirm Administered Dose 2 gm .ROUTE .STK-MED ONE Stop: 01/11/19 09:03 Last Admin: 01/11/19 10:25 Dose: 2 gm Morphine Sulfate 8 mg/Epinephrine HCl 0.3 mg/Cefuroxime Sodium 750 mg/Ketorolac Tromethamine 30 mg/Sodium Chloride 27.9 ml 0 mg .XX ONETIME ONE Stop: 01/11/19 10:01 Last Admin: 01/11/19 14:51 Dose: Not Given Ephedrine Sulfate (Ephedrine In Ns) Confirm Administered Dose 25 mg .ROUTE .STK- MED ONE Stop: 01/11/19 09:42 Ephedrine Sulfate (Ephedrine In Ns) Confirm Administered Dose 25 mg .ROUTE .STK- MED ONE Stop: 01/11/19 10:58 Epinephrine HCl (Adrenalin) Confirm Administered Dose 1 mg .ROUTE .STK-MED ONE Stop: 01/11/19 08:55 Fentanyl (Sublimaze) Confirm Administered Dose 100 mcg .ROUTE .STK-MED ONE Stop: 01/11/19 08:59 Fentanyl (Sublimaze) 50 mcg IVPUSH Q5M PRN PRN Reason: Pain Stop: 01/11/19 12:00 Hydromorphone HCl (Dilaudid) 0.5 mg IVPUSH Q10M PRN PRN Reason: Pain (severe 7-10) Stop: 01/11/19 12:00 Lactated Ringer's (Ringers, Lactated) 1,000 mls @ 125 mls/hr IV ASDIRECTED [facility] Last Admin: 01/11/19 08:45 Dose: 125 mls/hr Lidocaine HCl (Xylocaine-Mpf 1%) Confirm Administered Dose 0 mls @ as directed .ROUTE .STK-MED ONE Stop: 01/11/19 08:59 Lactated Ringer's (Ringers, Lactated) Confirm Administered Dose 1,000 mls @ as directed .ROUTE .STK-MED ONE Stop: 01/11/19 09:57 Lactated Ringer's (Ringers, Lactated) Confirm Administered Dose 1,000 mls @ as directed .ROUTE .STK-MED ONE Stop: 01/11/19 10:50 Iodine (Iodine 2% Mild Tincture) Confirm Administered Dose 30 ml .ROUTE .STK- MED ONE Stop: 01/11/19 07:53 Last Admin: 01/11/19 10:23 Dose: 18 ml Lidocaine/Sodium Bicarbonate (Buffered Lidocaine 1% In Ns 8.4%) 0.25 ml IDERM ONETIME PRN PRN Reason: Prior to IV Start Last Admin: 01/11/19 08:44 Dose: 0.25 ml Midazolam HCl (Versed 1 Mg/Ml) Confirm Administered Dose 2 mg .ROUTE .STK-MED ONE Stop: 01/11/19 08:59 Non-Formulary Medication (Mometasone Furoate [Elocon]) 1 dose TOP BID PRN PRN Reason: skin complications Non-Formulary Medication (Ubidecarenone) 100 mg PO DAILY COUNT INCLUDES THE [facility] Ondansetron HCl (Zofran) 4 mg IVPUSH ONETIME PRN PRN Reason: Nausea/Vomiting Stop: 01/11/19 12:00 Ondansetron HCl (Zofran) Confirm Administered Dose 4 mg .ROUTE .STK-MED ONE Stop: 01/11/19 09:57 Oxycodone HCl (Oxycontin) 10 mg PO ONETIME COUNT INCLUDES THE [facility] Stop: 01/11/19 12:00 Last Admin: 01/11/19 08:40 Dose: 10 mg Pregabalin (Lyrica) 50 mg PO ONETIME COUNT INCLUDES THE [facility] Stop: 01/11/19 12:00 Last Admin: 01/11/19 08:40 Dose: 50 mg Propofol (Diprivan 20 Ml) Confirm Administered Dose 400 mg .ROUTE .STK-MED ONE Stop: 01/11/19 08:59 Propofol (Diprivan 20 Ml) Confirm Administered Dose 200 mg .ROUTE .STK-MED ONE Stop: 01/11/19 10:08 Propofol (Diprivan 20 Ml) Confirm Administered Dose 200 mg .ROUTE .STK-MED ONE Stop: 01/11/19 10:40 Ropivacaine (Naropin 0.5%) Confirm Administered Dose 30 ml .ROUTE .STK-MED ONE Stop: 01/11/19 08:55 Scopolamine (Transderm-Scop) 1.5 mg TOP ONETIME ONE Stop: 01/11/19 08:58 Last Admin: 01/11/19 09:10 Dose: 1.5 mg Tranexamic Acid (Cyklokapron) Confirm Administered Dose 1,000 mg .ROUTE .STK- MED ONE Stop: 01/11/19 07:52 Last Admin: 01/11/19 10:36 Dose: 1,000 mg Vancomycin HCl (Vancomycin) Confirm Administered Dose 1 gm .ROUTE .STK-MED ONE Stop: 01/11/19 07:53 Last Admin: 01/11/19 10:33 Dose: 1 gm - Exam Wound/Incisions: Dressing Dry and Intact General: Alert, Cooperative, No Acute Distress Lungs: Normal Respiratory Effort Extremities: Other (NVS intact for BLE. Wilfredo's negative.) - Problem List Review Problem List Initiated/Reviewed/Updated: Yes - My Orders Last 24 Hours: Active Orders 24 hr Category Date Time Status Patient Status [ADT] Routine ADT 01/11/19 06:26 Active Antiembolic Devices [RC] 10, Care 01/11/19 06:27 Active CPAP Noctural Home [RT BiPAP/CPAP] [RC] ASDIRECTED Care 01/11/19 14:37 Active Notify Provider Consults [RC] ASDIRECTED Care 01/11/19 06:29 Active Oxygen Therapy [RC] ASDIRECTED Care 01/11/19 09:27 Active Pulse Oximetry [RC] ASDIRECTED Care 01/11/19 09:27 Active Ready for Discharge [RC] PER UNIT ROUTINE Care 01/12/19 07:24 Ordered Vital Signs [RC] Q4HR Care 01/11/19 06:26 Active Consult to Physician [CONS] Routine Cons 01/11/19 06:26 Active Regular Diet [DIET] Diet 01/11/19 Lunch Active Aspirin [Ecotrin] Med 01/12/19 09:00 Active 325 mg PO BID Atenolol [Tenormin] Med 01/11/19 18:00 Active 25 mg PO QPM Atenolol [Tenormin] Med 01/12/19 08:00 Active 50 mg PO QAM Bisacodyl [Dulcolax] Med 01/11/19 06:26 Active 5 mg PO DAILY PRN Cholecalciferol (Vitamin D3) [Vitamin D3] Med 01/12/19 09:00 Active 5,000 unit PO DAILY Clopidogrel [Plavix] Med 01/12/19 09:00 Active 75 mg PO DAILY Docusate Sodium [Colace] Med 01/11/19 21:00 Active 100 mg PO BID Ezetimibe [Zetia] Med 01/12/19 09:00 Active 10 mg PO DAILY Famotidine [Pepcid] Med 01/11/19 21:00 Active 20 mg PO Q12H Ketorolac [Toradol] Med 01/11/19 12:00 Active 15 mg IVPUSH Q6H PRN Levothyroxine [Levothroid] Med 01/12/19 06:00 Active 137 mcg PO ACBREAKFAST Losartan [Cozaar] Med 01/12/19 09:00 Active 25 mg PO DAILY Magnesium Hydroxide [Milk of Magnesia] Med 01/11/19 06:26 Active 30 ml PO BID PRN Morphine Med 01/11/19 06:26 Active 2 mg IVPUSH Q2H PRN Naloxone [Narcan] Med 01/11/19 06:26 Active 0.1 mg IVPUSH Q5M PRN Nitroglycerin [Nitrostat] Med 01/11/19 15:08 Active 0.4 mg SL ASDIRECTED PRN Ondansetron [Zofran] Med 01/11/19 06:26 Active 4 mg IVPUSH Q6H PRN Rosuvastatin [Crestor] Med 01/11/19 21:00 Active 20 mg PO BEDTIME Sennosides [Senna] Med 01/11/19 06:26 Active 8.6 mg PO BID PRN ceFAZolin [Ancef] 2 gm Med 01/11/19 17:00 Active Premix Bag 1 bag IV Q8H Antiembolic Hose [OM.PC] Per Unit Routine Oth 01/11/19 06:28 Ordered Ice Therapy [OM.PC] Per Unit Routine Oth 01/11/19 06:27 Ordered Resuscitation Status Routine Resus Stat 01/11/19 06:26 Ordered Medication Orders Aspirin (Ecotrin) 325 mg PO BID COUNT INCLUDES THE [facility] Atenolol (Tenormin) 25 mg PO QPM COUNT INCLUDES THE [facility] Last Admin: 01/11/19 18:14 Dose: 25 mg Atenolol (Tenormin) 50 mg PO QAM COUNT INCLUDES THE [facility] Bisacodyl (Dulcolax) 5 mg PO DAILY PRN PRN Reason: Constipation Cholecalciferol (Vitamin D3) 5,000 unit PO DAILY COUNT INCLUDES THE [facility] Clopidogrel Bisulfate (Plavix) 75 mg PO DAILY COUNT INCLUDES THE [facility] Cyclobenzaprine HCl (Flexeril) 10 mg PO TID PRN PRN Reason: Spasms Docusate Sodium (Colace) 100 mg PO BID COUNT INCLUDES THE [facility] Last Admin: 01/11/19 20:05 Dose: 100 mg Ezetimibe (Zetia) 10 mg PO DAILY COUNT INCLUDES THE [facility] Famotidine (Pepcid) 20 mg PO Q12H COUNT INCLUDES THE [facility] Last Admin: 01/11/19 20:05 Dose: 20 mg Cefazolin Sodium/Dextrose 2 gm (/ Premix) 50 mls @ 100 mls/hr IV Q8H COUNT INCLUDES THE [facility] Stop: 01/12/19 09:29 Last Admin: 01/12/19 00:01 Dose: 100 mls/hr Infusion: 01/11/19 16:48 Dose: 100 mls/hr Admin: 01/11/19 16:18 Dose: 100 mls/hr Ketorolac Tromethamine (Toradol) 15 mg IVPUSH Q6H PRN PRN Reason: Pain Levothyroxine Sodium (Levothroid) 137 mcg PO ACBREAKFAST COUNT INCLUDES THE [facility] Last Admin: 01/12/19 06:38 Dose: 137 mcg Losartan Potassium (Cozaar) 25 mg PO DAILY COUNT INCLUDES THE [facility] Magnesium Hydroxide (Milk Of Magnesia) 30 ml PO BID PRN PRN Reason: Constipation Morphine Sulfate (Morphine) 2 mg IVPUSH Q2H PRN PRN Reason: Breakthrough Pain Naloxone HCl (Narcan) 0.1 mg IVPUSH Q5M PRN PRN Reason: Oversedation Nitroglycerin (Nitrostat) 0.4 mg SL ASDIRECTED PRN PRN Reason: Chest Pain Ondansetron HCl (Zofran) 4 mg IVPUSH Q6H PRN PRN Reason: Nausea/Vomiting Oxycodone/Acetaminophen (Percocet 325-5 Mg) 1 - 2 tab PO Q4H PRN PRN Reason: Pain Last Admin: 01/12/19 03:52 Dose: 2 tab Admin: 01/12/19 00:10 Dose: 1 tab Admin: 01/11/19 19:25 Dose: 2 tab Rosuvastatin Calcium (Crestor) 20 mg PO BEDTIME [facility] Last Admin: 01/11/19 20:05 Dose: 20 mg Senna (Senna) 8.6 mg PO BID PRN PRN Reason: Constipation Sodium Chloride (Saline Flush) 10 ml FLUSH ASDIRECTED PRN PRN Reason: Keep Vein Open - Assessment Assessment (Free Text/Narrative):: POD#1 - left TKA - Plan Plan (Free Text/Narrative):: 1. 325mg ASA PO BID. Discussed with pharmacy and Hospitalist service. Pt on Plavix. 2. Hgb 12.8. 3. Discharge to home if cleared by Hospitalist service. 4. Outpatient therapy. The pt's case was discussed with Dr. Siddiqui.
[2019-01-12] MEDS ORDERED: Atenolol 50 MG Tab PO SCH (08:00)
[2019-01-12] MEDS ORDERED: Non-Formulary Medication 1 Each (Ubidecarenone 100 MG) PO SCH (09:00)
[2019-01-12] MEDS ORDERED: Cholecalciferol (Vitamin D3) 5,000 UNIT Tab PO SCH (09:00)
[2019-01-12] MEDS ORDERED: Aspirin 325 MG Tab.EC PO SCH (09:00)
[2019-01-12] MEDS ORDERED: Clopidogrel 75 MG Tab PO SCH (09:00)
[2019-01-12] MEDS ORDERED: Ezetimibe 10 MG Tab PO SCH (09:00)
[2019-01-12] MEDS ORDERED: Losartan 25 MG Tab PO SCH (09:00)
[2019-01-12] MEDS: Docusate Sodium 100 MG Cap PO SCH (10:06)
[2019-01-12] MEDS: Famotidine 20 MG Tab PO SCH (10:07)
--- NOTE | 2019-01-12 11:38 | PCM48HPAN ---
Post Anesthesia Note - EVALUATION WITHIN 48HRS OF ANESTHETIC Vital Signs in Normal Range: Yes Patient Participated in Evaluation: Yes Respiratory Function Stable: Yes Airway Patent: Yes Cardiovascular Function Stable: Yes Hydration Status Stable: Yes Pain Control Satisfactory: Yes Nausea and Vomiting Control Satisfactory: Yes Mental Status Recovered: Yes Vital Signs: Last Vital Signs Temp 36.1 C 01/12/19 08:14 Pulse 63 01/12/19 10:05 Resp 20 01/12/19 08:14 BP 126/73 01/12/19 10:06 Pulse Ox 91 L 01/12/19 08:14
[2019-01-12 13:17] VITALS: BP 131/78; PULSE 58
--- NOTE | 2019-01-14 15:48 | PCM.DCSUM1 ---
Discharge Summary - Hospital Course Brief History: Arun is a 73 yo male who underwent left TKA with Dr. Siddiqui on 01-11-2019. The procedure was completed under spinal anesthesia with post-op adductor block. The pt tolerated the procedure well and was admitted to the Medical-Surgical Unit under observation status. Medical management was provided by the Hospitalist service. The pt's Hospital course was uneventful. The pt's Hgb on POD#1 was 12.8 On POD#1, 325mg ASA BID was initiated for VTE prophylaxis. SCDs and TEDs were also ordered. A Mepilex dressing was placed at the incision site at the time of surgery and remained clean and dry. The pt participated in P.T. and O.T. and progressed well. The pt was allowed to WBAT. On POD#1, the pt was deemed appropriate to discharge to home with his . - Discharge Data Discharge Date: 01/12/19 Discharge Disposition: Home, Self-Care 01 Condition: Good - Referral to Home Health Primary Care Physician: Ab Lomax MD - Patient Summary/Data Consults: Consultations 01/11/19 06:23 OT Evaluation and Treatment [CONS] Routine PT Evaluation and Treatment [CONS] Routine 01/11/19 06:26 Consult to Physician [CONS] Routine - Patient Instructions Diet: Usual Diet as Tolerated Activity: Apply Ice, As Tolerated, Elevate Extremity, Full Weight Bearing Driving: Do Not Drive Showering/Bathing: May Shower Wound/Incision Care: Keep Operative Site/Wound Site Clean and Dry, Do NOT Change Dressing Notify Provider of: Fever, Increased Pain, Swelling and Redness, Drainage, Nausea and/or Vomiting Other/Special Instructions: Please get up and moving around EVERY HOUR while awake. This helps to prevent blood clots. Please use your walker and have help with mobility as needed. Take a short walk in your home every hour while awake. Please take 325mg Aspirin TWICE daily. The aspirin is being used for blood clot prevention and not for pain management so please do not miss a dose of the medication. You do not need to use 81mg aspirin while using the 325mg aspirin. When the course of 325mg aspirin is complete, then you will resume use of 81mg aspirin. You could use a medication like Pepcid or Tagamet to protect your stomach while you are using the higher dose of aspirin. At home, please complete the exercises that you learned during the Hospital stay. Schedule for physical therapy. Use the pain medication as needed. The medication may cause drowsiness and constipation. Contact your primary care provider for instructions if you are constipated. You may use a stool softener like docusate sodium or Colace 100mg twice daily and/or a laxative like Miralax daily for constipation. Increase your water and fiber intake while you are using the pain medication. Discontinue use of the pain medication as soon as able. Please do not use other medications that may cause drowsiness (other pain medications, anxiety pills, cold medications, sleeping pills, etc) while using the prescription pain medication. Do not use alcohol while using the pain medication. You may use acetaminophen or Tylenol for pain management, however, please ensure you are not using over 4000 mg or 4 grams of acetaminophen per day from all sources. Your pain medication has 325mg of acetaminophen per tablet. At this time, please do not use ibuprofen (Motrin, Advil) or naproxen (Aleve) for pain management as you are using the aspirin. When the aspirin course is completed in 4 weeks, you could use ibuprofen or naproxen for pain management (if this is allowed by your primary care provider) . Wear the SAILAJA hose during the day and you may remove these at night. Elevate the limb to decrease swelling. Place ice to the area often. Place a towel between your skin and the blue pad. Use the incentive spirometer often. Take deep breaths throughout the day. Please keep the dressing in place until follow -up. Notify the Clinic if the dressing becomes saturated. Increase your protein intake while you are healing. Call the Clinic with questions or concerns - [phone]. - Discharge Plan *PRESCRIPTION DRUG MONITORING PROGRAM REVIEWED*: No *COPY OF PRESCRIPTION DRUG MONITORING REPORT IN PATIENT TOY: No Prescriptions/Med Rec: Acetaminophen/oxyCODONE [Percocet 325-5 MG] 1 - 2 tab PO Q4H PRN #60 tablet PRN Reason: Pain Aspirin [Ecotrin EC] 325 mg PO BID #60 tab.ec Cyclobenzaprine [Flexeril] 10 mg PO TID PRN #40 tablet PRN Reason: Spasms Home Medications: Home Meds Atenolol [Tenormin] 50 mg PO QAM 09/07/13 [History] Levothyroxine [Levothroid] 137 mcg PO DAILY 09/07/13 [History] Losartan [Cozaar] 25 mg PO DAILY 09/07/13 [History] Clopidogrel [Plavix] 75 mg PO DAILY 09/23/13 [History] Nitroglycerin [Nitrostat] 0.4 mg SL ASDIRECTED PRN 09/23/13 [History] Ezetimibe 10 mg PO DAILY 03/14/18 [History] Rosuvastatin Calcium [Crestor] 20 mg PO BEDTIME 03/14/18 [History] Ubidecarenone [Co Q-10] 100 mg PO DAILY 03/14/18 [History] Atenolol 25 mg PO QPM 01/08/19 [History] Mometasone Furoate [Elocon] 1 dose TOP BID PRN 01/08/19 [History] Cholecalciferol (Vitamin D3) [Vitamin D3] 1 cap PO DAILY 01/11/19 [History] Acetaminophen/oxyCODONE [Percocet 325-5 MG] 1 - 2 tab PO Q4H PRN #60 tablet 07/26 [Rx] Aspirin [Ecotrin EC] 325 mg PO BID #60 tab.ec 01/12/19 [Rx] Bisacodyl [Dulcolax] 5 mg PO DAILY PRN tablet 01/12/19 [Rx] Cyclobenzaprine [Flexeril] 10 mg PO TID PRN #40 tablet 01/12/19 [Rx] Docusate Sodium [Colace] 100 mg PO BID cap 01/12/19 [Rx] Famotidine [Pepcid] 20 mg PO Q12H tablet 01/12/19 [Rx] Magnesium Hydroxide [Milk of Magnesia] 30 ml PO BID PRN cup 01/12/19 [Rx] Sennosides [Senna] 8.6 mg PO BID PRN tablet 01/12/19 [Rx] Referrals: Alisia Arteaga PA-C [[facility] [employer]] - 01/19/19 9:30 am (Please follow up with Dr. Siddiqui on January 19 at 9:30 AM Please follow up with KENTON Allred on January, at 2:30 PM and Saturday, February 23, 2019 at 9:30 AM. ) - Discharge Summary/Plan Comment DC Time >30 min.: No - Patient Data Vitals - Most Recent: Last Vital Signs Temp 98.2 F 01/12/19 12:23 Pulse 58 L 01/12/19 12:23 Resp 18 01/12/19 12:23 BP 131/78 01/12/19 12:23 Pulse Ox 99 01/12/19 12:23 Weight - Most Recent: 258 lb 8 oz Med Orders - Current: Current Medications Discontinued Medications Acetaminophen (Tylenol) 975 mg PO ONETIME [facility] Stop: 01/11/19 12:00 Last Admin: 01/11/19 08:40 Dose: 975 mg Aspirin (Ecotrin) 325 mg PO BID [facility] Last Admin: 01/12/19 10:07 Dose: 325 mg Atenolol (Tenormin) 25 mg PO QPM [facility] Last Admin: 01/11/19 18:14 Dose: 25 mg Atenolol (Tenormin) 50 mg PO QAM [facility] Last Admin: 01/12/19 10:05 Dose: 50 mg Bisacodyl (Dulcolax) 5 mg PO DAILY PRN PRN Reason: Constipation Bupivacaine HCl (Sensorcaine-Mpf 0.25%) Confirm Administered Dose 20 ml .ROUTE .STK-MED ONE Stop: 01/11/19 07:53 Last Admin: 01/11/19 10:30 Dose: 30 ml Bupivacaine HCl (Sensorcaine-Mpf 0.25%) Confirm Administered Dose 10 ml .ROUTE .STK-MED ONE Stop: 01/11/19 07:58 Cefazolin Sodium (Ancef) Confirm Administered Dose 2 gm .ROUTE .STK-MED ONE Stop: 01/11/19 07:53 Cefazolin Sodium (Ancef) Confirm Administered Dose 2 gm .ROUTE .STK-MED ONE Stop: 01/11/19 09:03 Last Admin: 01/11/19 10:25 Dose: 2 gm Cholecalciferol (Vitamin D3) 5,000 unit PO DAILY [facility] Last Admin: 01/12/19 10:08 Dose: 5,000 unit Clopidogrel Bisulfate (Plavix) 75 mg PO DAILY [facility] Last Admin: 01/12/19 10:08 Dose: 75 mg Morphine Sulfate 8 mg/Epinephrine HCl 0.3 mg/Cefuroxime Sodium 750 mg/Ketorolac Tromethamine 30 mg/Sodium Chloride 27.9 ml 0 mg .XX ONETIME ONE Stop: 01/11/19 10:01 Last Admin: 01/11/19 14:51 Dose: Not Given Cyclobenzaprine HCl (Flexeril) 10 mg PO TID PRN PRN Reason: Spasms Docusate Sodium (Colace) 100 mg PO BID [facility] Last Admin: 01/12/19 10:06 Dose: 100 mg Ezetimibe (Zetia) 10 mg PO DAILY [facility] Last Admin: 01/12/19 10:08 Dose: 10 mg Ephedrine Sulfate (Ephedrine In Ns) Confirm Administered Dose 25 mg .ROUTE .STK- MED ONE Stop: 01/11/19 09:42 Ephedrine Sulfate (Ephedrine In Ns) Confirm Administered Dose 25 mg .ROUTE .STK- MED ONE Stop: 01/11/19 10:58 Epinephrine HCl (Adrenalin) Confirm Administered Dose 1 mg .ROUTE .STK-MED ONE Stop: 01/11/19 08:55 Famotidine (Pepcid) 20 mg PO Q12H [facility] Last Admin: 01/12/19 10:07 Dose: 20 mg Fentanyl (Sublimaze) Confirm Administered Dose 100 mcg .ROUTE .STK-MED ONE Stop: 01/11/19 08:59 Fentanyl (Sublimaze) 50 mcg IVPUSH Q5M PRN PRN Reason: Pain Stop: 01/11/19 12:00 Hydromorphone HCl (Dilaudid) 0.5 mg IVPUSH Q10M PRN PRN Reason: Pain (severe 7-10) Stop: 01/11/19 12:00 Lactated Ringer's (Ringers, Lactated) 1,000 mls @ 125 mls/hr IV ASDIRECTED [facility] Last Admin: 01/11/19 08:45 Dose: 125 mls/hr Cefazolin Sodium/Dextrose 2 gm (/ Premix) 50 mls @ 100 mls/hr IV Q8H [facility] Stop: 01/12/19 09:29 Last Admin: 01/12/19 10:06 Dose: 100 mls/hr Lidocaine HCl (Xylocaine-Mpf 1%) Confirm Administered Dose 0 mls @ as directed .ROUTE .STK-MED ONE Stop: 01/11/19 08:59 Lactated Ringer's (Ringers, Lactated) Confirm Administered Dose 1,000 mls @ as directed .ROUTE .STK-MED ONE Stop: 01/11/19 09:57 Lactated Ringer's (Ringers, Lactated) Confirm Administered Dose 1,000 mls @ as directed .ROUTE .STK-MED ONE Stop: 01/11/19 10:50 Iodine (Iodine 2% Mild Tincture) Confirm Administered Dose 30 ml .ROUTE .STK- MED ONE Stop: 01/11/19 07:53 Last Admin: 01/11/19 10:23 Dose: 18 ml Ketorolac Tromethamine (Toradol) 15 mg IVPUSH Q6H PRN PRN Reason: Pain Levothyroxine Sodium (Levothroid) 137 mcg PO ACBREAKFAST [facility] Last Admin: 01/12/19 06:38 Dose: 137 mcg Lidocaine/Sodium Bicarbonate (Buffered Lidocaine 1% In Ns 8.4%) 0.25 ml IDERM ONETIME PRN PRN Reason: Prior to IV Start Last Admin: 01/11/19 08:44 Dose: 0.25 ml Losartan Potassium (Cozaar) 25 mg PO DAILY [facility] Last Admin: 01/12/19 10:06 Dose: 25 mg Magnesium Hydroxide (Milk Of Magnesia) 30 ml PO BID PRN PRN Reason: Constipation Midazolam HCl (Versed 1 Mg/Ml) Confirm Administered Dose 2 mg .ROUTE .STK-MED ONE Stop: 01/11/19 08:59 Morphine Sulfate (Morphine) 2 mg IVPUSH Q2H PRN PRN Reason: Breakthrough Pain Naloxone HCl (Narcan) 0.1 mg IVPUSH Q5M PRN PRN Reason: Oversedation Nitroglycerin (Nitrostat) 0.4 mg SL ASDIRECTED PRN PRN Reason: Chest Pain Non-Formulary Medication (Mometasone Furoate [Elocon]) 1 dose TOP BID PRN PRN Reason: skin complications Non-Formulary Medication (Ubidecarenone) 100 mg PO DAILY [facility] Ondansetron HCl (Zofran) 4 mg IVPUSH Q6H PRN PRN Reason: Nausea/Vomiting Ondansetron HCl (Zofran) 4 mg IVPUSH ONETIME PRN PRN Reason: Nausea/Vomiting Stop: 01/11/19 12:00 Ondansetron HCl (Zofran) Confirm Administered Dose 4 mg .ROUTE .STK-MED ONE Stop: 01/11/19 09:57 Oxycodone HCl (Oxycontin) 10 mg PO ONETIME [facility] Stop: 01/11/19 12:00 Last Admin: 01/11/19 08:40 Dose: 10 mg Oxycodone/Acetaminophen (Percocet 325-5 Mg) 1 - 2 tab PO Q4H PRN PRN Reason: Pain Last Admin: 01/12/19 14:36 Dose: 2 tab Pregabalin (Lyrica) 50 mg PO ONETIME [facility] Stop: 01/11/19 12:00 Last Admin: 01/11/19 08:40 Dose: 50 mg Propofol (Diprivan 20 Ml) Confirm Administered Dose 400 mg .ROUTE .STK-MED ONE Stop: 01/11/19 08:59 Propofol (Diprivan 20 Ml) Confirm Administered Dose 200 mg .ROUTE .STK-MED ONE Stop: 01/11/19 10:08 Propofol (Diprivan 20 Ml) Confirm Administered Dose 200 mg .ROUTE .STK-MED ONE Stop: 01/11/19 10:40 Ropivacaine (Naropin 0.5%) Confirm Administered Dose 30 ml .ROUTE .STK-MED ONE Stop: 01/11/19 08:55 Rosuvastatin Calcium (Crestor) 20 mg PO BEDTIME [facility] Last Admin: 01/11/19 20:05 Dose: 20 mg Scopolamine (Transderm-Scop) 1.5 mg TOP ONETIME ONE Stop: 01/11/19 08:58 Last Admin: 01/11/19 09:10 Dose: 1.5 mg Senna (Senna) 8.6 mg PO BID PRN PRN Reason: Constipation Sodium Chloride (Saline Flush) 10 ml FLUSH ASDIRECTED PRN PRN Reason: Keep Vein Open Tranexamic Acid (Cyklokapron) Confirm Administered Dose 1,000 mg .ROUTE .STK- MED ONE Stop: 01/11/19 07:52 Last Admin: 01/11/19 10:36 Dose: 1,000 mg Vancomycin HCl (Vancomycin) Confirm Administered Dose 1 gm .ROUTE .STK-MED ONE Stop: 01/11/19 07:53 Last Admin: 01/11/19 10:33 Dose: 1 gm
--- NOTE | 2019-01-15 13:41 | PCM.OPNOTE ---
- General Post-Op/Procedure Note Date of Surgery/Procedure: 01/11/19 Operative Procedure(s): left total knee arthroplasty Pre Op Diagnosis: left knee osteoarthrosis Post-Op Diagnosis: Same Anesthesia Technique: Local, MAC, Spinal Primary Surgeon: Vipul Siddiqui Anesthesia Provider: Nav Suazo [employer] Agent: Alisia Arteaga [employer] Agent: Cyndi Austin EBJairo in mLs: 200 Complications: None Condition: Good Free Text/Narrative:: 09/13 9mm 35x10
--- NOTE | 2019-01-15 14:08 | OR ---
DATE OF OPERATION: 01/11/2019 SURGEON: Vipul Siddiqui MD OPERATION PERFORMED: Left total knee arthroplasty. PREOPERATIVE DIAGNOSIS: Left total knee osteoarthrosis. POSTOPERATIVE DIAGNOSIS: Left total knee osteoarthrosis. ANESTHESIA: Local MAC with spinal. ANESTHESIA PROVIDER: Nav Suazo CRNA. ASSISTANTS: Alisia Arteaga PA-C and Cyndi Austin LPN. ESTIMATED BLOOD LOSS: 200 mL. COMPLICATIONS: None. CONDITION: Stable. IMPLANTS: 1. Tito size 7 press-fit CR femur. 2. Tito size 7 press-fit tibial base plate. 3. Sherman size 7, 9 mm CS polyethylene insert. 4. Sherman size 35 x 10 mm press-fit asymmetric patella. DESCRIPTION OF PROCEDURE: The patient was identified in the preop holding area. Proper site was marked and identified by the surgeon. The patient was taken back to the operating theater. After adequate anesthesia, the patient's left lower extremity had a nonsterile tourniquet applied and it was sterilely prepped and draped in the usual sterile fashion. OR time-out was performed. The patient received 2 g IV Ancef. At this time, the left lower extremity was exsanguinated. Tourniquet was insufflated to 300 mmHg. Standard medial parapatellar incision was made. Medial parapatellar arthrotomy was created. Deep fibers of the MCL were raised and anterior fat pad was resected. At this time, attention was turned to the patella. Patella measured 25, it was resected to a 15 for a 35 x 10 mm patella. Drill holes were then drilled and found to be in adequate position. The drill was then drilled in the distal femur and the intramedullary distal femoral cutting guide was then placed. 8 mm was resected off the distal femur and was found to be an adequate resection. Sizing guide was placed. It was found to be a size 7 press-fit CR femur that was shown on the implant record at the beginning of this dictation. The drill holes were drilled for the epicondylar axis using Whitesides line and epicondyles as reference. At this time, the 4-in- 1 cutting block was placed. An anterior posterior and anterior and posterior chamfer cuts were then completed. Attention was turned to the tibia. The posterior medial lateral retractors were placed. The extramedullary tibial guide was placed. It was placed in the old footprint of the ACL. It was aligned with the center of the ankle and 0 degrees of slope, 9 mm was then resected off the unaffected side. There was found to be an acceptable reduction. At this time, posterior osteophytes were removed along with medial and lateral meniscus. A trial implant was placed with a correct sized tibia that was mentioned at the beginning of the dictation. A Sherman size 7, 9 mm CS polyethylene insert was then placed. The patient's knee was brought through range of motion. The patella was tracking centrally and was stable to varus and valgus stress. Alignment was found to be roughly at 0 degrees. The tibia was stamped and drilled in proper rotation. The universal tibial base plate was impacted in place. Next, the Sherman size 7 press-fit CR femur impacted into place and the Sherman size 7, 9 mm CS polyethylene insert was placed. The patient's knee was brought into full extension. The patella was then press-fit in place at this time. Tourniquet was deflated. One liter dilute Betadine solution was irrigated through the knee along with 3 L of pulse lavage irrigation with Ancef. Periarticular injection was then completed. The patient's knee was brought through a range of motion. Once the cement had time to set up and it was found to be stable to varus valgus stress, the patella was tracking centrally with full range of motion. At this time, a #2 barbed suture was used for closure of the medial parapatellar arthrotomy. Topical tranexamic acid was placed. 2-0 Vicryl was used subcutaneously, Prineo was used for the skin. The patient tolerated the procedure well and was sent to the PACU in stable condition. MMODAL /[id number]
== END 2019-01-12 15:26 | disposition home or self-care (01) ==
LOC: JD.SDS 08:20 → JD.MS 08:22 → JD.SDS 15:09
PROVIDERS: ADMIT Orthopaedic Surgery; ATTEND Orthopaedic Surgery
DX: M17.12 Unilateral primary osteoarthritis, left knee (principal); I10 Essential (primary) hypertension; I25.10 Atherosclerotic heart disease of native coronary artery without angina pectoris; I25.2 Old myocardial infarction; I44.0 Atrioventricular block, first degree; I49.3 Ventricular premature depolarization; E03.9 Hypothyroidism, unspecified; E78.00 Pure hypercholesterolemia, unspecified; G47.33 Obstructive sleep apnea (adult) (pediatric); G89.18 Other acute postprocedural pain; Z95.5 Presence of coronary angioplasty implant and graft; Z99.89 Dependence on other enabling machines and devices; Z87.891 Personal history of nicotine dependence; Z79.02 Long term (current) use of antithrombotics/antiplatelets; Z79.82 Long term (current) use of aspirin; Z79.899 Other long term (current) drug therapy
CPT/HCPCS: 27447; 36415; 64447; 73560; 80053; 85027; 96365; 96376; 97110; 97116; 97161; 97165; 97535; A9270; C1776; G0378; J0171; J0690; J0697; J1885; J2250; J2270; J2405; J2704; J2795; J3010; J3370; J3490; J7050; J7120; 01402; 64450; J2001

== ENCOUNTER 2021-06-24 21:39 | Emergency (ER) | payer MEDICARE, BC ==
[2021-06-24 22:31] VITALS: BP 176/111; PULSE 83
[2021-06-24] MEDS ORDERED: Ondansetron 4 MG/2 ML SDV IVPUSH ONE (22:44)
[2021-06-24] MEDS ORDERED: Sodium Chloride 0.9% 10 ML Syringe FLUSH PRN (22:44)
[2021-06-24] MEDS ORDERED: Sodium Chloride 0.9% 1,000 ML IV SCH (22:45)
== END 2021-06-25 02:26 | disposition home or self-care (01) ==
LOC: JD.ED 21:39
DX: S76.211A Strain of adductor muscle, fascia and tendon of right thigh, initial encounter (principal); K40.20 Bilateral inguinal hernia, without obstruction or gangrene, not specified as recurrent; I25.10 Atherosclerotic heart disease of native coronary artery without angina pectoris; I10 Essential (primary) hypertension; E78.00 Pure hypercholesterolemia, unspecified; I25.2 Old myocardial infarction; E03.9 Hypothyroidism, unspecified; E66.9 Obesity, unspecified; Z79.899 Other long term (current) drug therapy; Z68.33 Body mass index [BMI] 33.0-33.9, adult; Z79.02 Long term (current) use of antithrombotics/antiplatelets; X50.0XXA Overexertion from strenuous movement or load, initial encounter; Y99.0 Civilian activity done for income or pay
CPT/HCPCS: 36415; 74177; 80053; 81001; 83605; 83690; 83735; 85025; 86140; 93005; 96374; 99284; J2405; J3490; J7030; 93010

== ENCOUNTER 2022-01-17 16:41 | Emergency (ER) | payer MEDICARE, BC ==
[2022-01-17 17:07] VITALS: BP 159/81; PULSE 79
== END 2022-01-17 18:20 | disposition home or self-care (01) ==
LOC: JD.ED 16:41
DX: S20.212A Contusion of left front wall of thorax, initial encounter (principal); I25.10 Atherosclerotic heart disease of native coronary artery without angina pectoris; E78.00 Pure hypercholesterolemia, unspecified; I10 Essential (primary) hypertension; I25.2 Old myocardial infarction; E03.9 Hypothyroidism, unspecified; E66.9 Obesity, unspecified; Z68.33 Body mass index [BMI] 33.0-33.9, adult; Z79.02 Long term (current) use of antithrombotics/antiplatelets; Z79.82 Long term (current) use of aspirin; Z79.899 Other long term (current) drug therapy; W00.0XXA Fall on same level due to ice and snow, initial encounter; Y93.H1 Activity, digging, shoveling and raking
CPT/HCPCS: 71101-26-LT; 71101-LT; 99283

== ENCOUNTER 2022-02-20 10:49 | Emergency (ER) | payer MEDICARE, BC ==
[2022-02-20] MEDS ORDERED: Sodium Chloride 0.9% 1,000 ML IV STA (11:35)
[2022-02-20] MEDS ORDERED: Sodium Chloride 0.9% 10 ML Syringe FLUSH PRN (11:35)
[2022-02-20] MEDS ORDERED: Iopamidol 612 MG/ML 50 ML SDV IVPUSH ONE (11:50)
[2022-02-20] MEDS ORDERED: Iopamidol 612 MG/ML 100 ML Bottle IVPUSH ONE (11:50)
[2022-02-20] MEDS ORDERED: Levofloxacin 750 MG Tab PO ONE (15:03)
[2022-02-20] MEDS ORDERED: metroNIDAZOLE 500 MG Tab PO ONE (15:04)
[2022-02-20 16:04] VITALS: BP 132/70; PULSE 68
== END 2022-02-20 15:50 | disposition home or self-care (01) ==
LOC: JD.ED 10:49
DX: K57.32 Diverticulitis of large intestine without perforation or abscess without bleeding (principal); I25.10 Atherosclerotic heart disease of native coronary artery without angina pectoris; E78.00 Pure hypercholesterolemia, unspecified; I10 Essential (primary) hypertension; I25.2 Old myocardial infarction; E66.9 Obesity, unspecified; Z68.34 Body mass index [BMI] 34.0-34.9, adult; Z79.899 Other long term (current) drug therapy; Z79.82 Long term (current) use of aspirin
CPT/HCPCS: 36415; 74177; 80053; 81001; 85025; 86140; 96360; 96361; 99284; A9270; J3490; J7030; Q9967